=== PATIENT | male | born 1965 | race Caucasian/White ===

== ENCOUNTER → 2017-11-15 | Outpatient (CLI) | payer MEDICARE ==
[~2017-11-15] MED LIST: AC500T PO; ALPR.25T PO; ALPR1T PO; ALPR1TAB72 PO; AMLO10TA82 PO; BACL10TA PO; BSP10T PO; BUDE6HFA IH; CARV25TA PO; CLIN-62 PO; CLIN300C3 PO; CLINDAMYCIN 300 MG PO; DICL75TA2 PO; DOXY100C2 PO; DULO30CA; DULO30CA PO; DULO60CA6 PO; FLT05NA16; HCT25T PO; HYDR1TAB PO; IBP800T PO; LISI40TA PO; LORA10TA7 PO; LRT10T PO; LRZ1T PO; NAPR-243 PO; OXYC-272 PO; OXYC-281 PO; OXYC1TAB95 PO; POTA10CA43 PO; ROSU10TA12 PO; SMV20T PO; TRAZ150T42 PO; TRM50T PO; WRF1T PO; WRF2T PO; WRF3T PO; WRF5T PO; ZLP10T PO; magic mouth wash
[2017-11-15 12:27] LABS: ALANINE AMINOTRANSFERASE 12 U/L (0-55); ALBUMIN 4.3 GM/DL (3.2-4.5); ALKALINE PHOSPHATASE 61 U/L (40-136); BILIRUBIN,TOTAL 0.3 MG/DL (0.1-1.0); BUN/CREATININE RATIO 12; CALCIUM 9.1 MG/DL (8.5-10.1); CARBON DIOXIDE 25 MMOL/L (21-32); CHLORIDE 104 MMOL/L (98-107); CHOLESTEROL 161 MG/DL (< 200); CREATININE SERUM 0.89 MG/DL (0.60-1.30); GFR ESTIMATED > 60; GLUCOSE 105 MG/DL (70-105); HDL CHOLESTEROL 53 MG/DL (40-60); POTASSIUM 4.3 MMOL/L (3.6-5.0); SODIUM 136 MMOL/L (135-145); TOTAL PROTEIN 7.1 GM/DL (6.4-8.2); TRIGLYCERIDES 192 MG/DL (<150); VLDL CHOLESTEROL 38 MG/DL (5-40)
== END ==
LOC: LAB 11:42
PROVIDERS: ATTEND Physician Assistant
DX: R07.89 Other chest pain (principal); R06.09 Other forms of dyspnea; I10 Essential (primary) hypertension; I26.99 Other pulmonary embolism without acute cor pulmonale
CPT/HCPCS: 36415; 80053; 80061

== ENCOUNTER → 2017-11-26 | Outpatient (CLI) | payer MEDICAID, MEDICARE | LOC: CARD 13:07 | PROVIDERS: ATTEND Physician Assistant | DX: R07.89 Other chest pain (principal); R06.09 Other forms of dyspnea; I10 Essential (primary) hypertension; I26.99 Other pulmonary embolism without acute cor pulmonale | CPT/HCPCS: 93306 ==

== ENCOUNTER → 2017-11-28 | Outpatient (CLI) | payer MEDICAID, MEDICARE ==
[~2017-11-28] MED LIST changes: +CATHETER FLUSH 10 ML SYR IV PRN; +REGADENOSON 0.4 MG/5 ML SYR (LEXISCAN) IV ONE
[2017-11-28 09:29] VITALS: BP 122/85
[2017-11-28 09:38] VITALS: BP 180/102
[2017-11-28 09:45] VITALS: BP 143/91
--- NOTE | 2017-11-28 15:49 | STRESS TEST ---
DATE OF SERVICE: 11/28/2017 LEXISCAN MYOVIEW STRESS TEST REPORT REFERRING PHYSICIAN: Robinson Corral DO. Baseline heart rate is 79, baseline blood pressure 133/93, baseline EKG is sinus rhythm with no ischemic changes. In summary, the patient was initially scheduled for exercise Myoview stress test. Test was converted to Lexiscan Myoview stress test. Received 10.9 mCi of technetium-99 Myoview and the resting images were obtained. Then, the patient received 0.4 mg of Lexiscan followed by 32.3 mCi of technetium-99 Myoview. Throughout the test, there were minimal nondiagnostic EKG changes. The resting and stress images were reviewed and compared in the short axis, horizontal long axis, and vertical long axis views. Review of the images showed good radiotracer uptake. Typical male pattern. No significant ischemia or infarction. SSS is 1, SDS 1, TID value 0.98. On the gated images, the left ventricle appeared to be in normal size with normal contractility. Calculated ejection fraction 58%. CONCLUSION: 1. The patient tolerated Lexiscan well. 2. Diaphragmatic attenuation with typical male pattern. No significant ischemia or infarction on SPECT images. 3. Normal left ventricular size with normal contractility. Calculated ejection fraction 58%. Job ID: [id number] DocumentID: [id number] Dictated Date: 11/28/2017 15:35:29 Bolter Helper Date: 11/28/2017 15:47:51 Dictated By: CAROLYN DOOLEY MD
== END ==
LOC: CARD 07:34
PROVIDERS: ATTEND Physician Assistant
DX: R07.9 Chest pain, unspecified (principal)
CPT/HCPCS: 78452; 93017

== ENCOUNTER 2017-12-19 05:36 | Outpatient (CLI) | payer MEDICARE ==
[~2017-12-19] VITALS: Ht 177.8 cm; Wt 98.8 kg
[~2017-12-19 05:36] MED LIST changes: -CATHETER FLUSH 10 ML SYR IV PRN; -REGADENOSON 0.4 MG/5 ML SYR (LEXISCAN) IV ONE
[2017-12-19] MEDS ORDERED: TOPI100T PO (12:57)
[2017-12-19] MEDS ORDERED: NORT50CA PO (12:57)
[2017-12-19] MEDS ORDERED: LISI40TA PO (12:57)
[2017-12-19] MEDS ORDERED: CLON0.5T3 PO (12:57)
[2017-12-19] MEDS ORDERED: DULO60CA58 PO (12:57)
[2017-12-19] MEDS ORDERED: TRAM50TA2 PO (12:57)
[2017-12-19] MEDS ORDERED: CARV25TA PO (12:57)
[2017-12-19] MEDS ORDERED: AMLO10TA2 PO (12:57)
[2017-12-19] MEDS ORDERED: PANT40TA3 PO (12:57)
[2017-12-19] MEDS ORDERED: NIAC-4 PO (12:57)
[2017-12-19] MEDS ORDERED: MULT-35 PO (12:57)
[2017-12-19] MEDS ORDERED: SIMV40TA4 PO (12:57)
[2017-12-19] MEDS ORDERED: CARB200T6 PO (12:57)
[2017-12-19] MEDS ORDERED: NABU500T PO (12:57)
[2017-12-19] MEDS ORDERED: POTA10TA10 PO (12:57)
== END 2017-12-19 13:03 ==
LOC: PREOP 05:36
PROVIDERS: ATTEND Surgery
DX: Z01.818 Encounter for other preprocedural examination (principal); Z12.11 Encounter for screening for malignant neoplasm of colon; K21.9 Gastro-esophageal reflux disease without esophagitis

== ENCOUNTER 2018-01-02 10:15 | Day surgery (SDC) | payer MEDICARE, MEDICAID ==
[~2018-01-02] VITALS: Ht 177.8 cm; Wt 98.8 kg
[~2018-01-02 10:15] MED LIST changes: +AMLO10TA2 PO; +CARB200T6 PO; +CLON0.5T3 PO; +DULO60CA58 PO; +MULT-35 PO; +NABU500T PO; +NIAC-4 PO; +NORT50CA PO; +PANT40TA3 PO; +POTA10TA10 PO; +SIMV40TA4 PO; +TOPI100T PO; +TRAM50TA2 PO
--- OUTSIDE RECORDS SUMMARY | 2018-01-02 10:18 | XMS REPORT ---
Author Author ASIYA SWANSON [facility] Address [address] [place] [address] Care Team Providers Care Primer And Powder Canning Leader Name Role Phone ASIYA SWANSON Unavailable PROBLEMS Type Condition ICD9-CM Code TCA38-HF Code Onset Dates Condition Status SNOMED Code Problem Unspecified essential hypertension 401.9 Active 97670683 Problem Unspecified mood [affective] disorder F39 Active 48443919 Problem Hyposmolality and/or hyponatremia 276.1 Active 364334166 Problem Anxiety F41.9 Active 17500505 Problem High risk medication use Z79.899 Active 930959368 Problem Recurrent major depressive disorder, in partial remission F33.41 Active 36060052 Problem Social phobia F40.10 Active 15076342 Problem Opioid abuse F11.10 Active 4247775 Problem Psychophysiological insomnia F51.04 Active 437660568 Problem Hypoxemia 799.02 Active 091578324 Problem Unspecified myalgia and myositis 729.1 Active 693741942 Problem Lumbago 724.2 Active 264141931 Problem Encounter for long-term (current) use of other medications V58.69 Active 173924368 Problem Unspecified disorder of the teeth and supporting structures 525.9 Active 701222745 ALLERGIES Substance Reaction Event Type Date Status Procardia Hotflashes Drug Allergy Feb, Active Penicillins Unknown Non Drug Allergy Feb, Active ENCOUNTERS Encounter Location Date Diagnosis [facility] [address] [facility] [id number] [address] December, [facility] [address] [id number] [address] Sep, Recurrent major depressive disorder, in partial remission F33.41 ; Anxiety F41.9 and Psychophysiological insomnia F51.04 [facility] [address] [facility] [id number] [address] Sep, Recurrent major depressive disorder, in partial remission F33.41 [facility] [address] [address] Aug, Recurrent major depressive disorder, in partial remission F33.41 ; Anxiety F41.9 and Psychophysiological insomnia F51.04 [facility] [address] [address] Jul, Recurrent major depressive disorder, in partial remission F33.41 [facility] [place] [address] [facility] [address] [id number] [place] [id number] Jul, [facility] [place] [address] [facility] [address] [id number] [place] [id number] Jun, [facility] [address]00565[address] [address] Jun, Recurrent major depressive disorder, in partial remission F33.41 [facility] [id number] [place] [address]- [address] Jun, Recurrent major depressive disorder, in partial remission F33.41 [facility] [id number] [place] [address]- 2809 Jun, Recurrent major depressive disorder, in partial remission F33.41 [facility] [address] [address] May, Recurrent major depressive disorder, in partial remission F33.41 [facility] [address] [address] 14 Apr, 2017 Recurrent major depressive disorder, in partial remission F33.41 [facility] [address]00565[address] [address] Mar, Recurrent major depressive disorder, in partial remission F33.41 ; Anxiety F41.9 and Opioid abuse F11.10 [facility] [address] [address] Feb, Recurrent major depressive disorder, in partial remission F33.41 ; Anxiety F41.9 and Opioid abuse F11.10 [facility] [address] [place] [address] December, Recurrent major depressive disorder, in partial remission F33.41 ; Anxiety F41.9 and Opioid abuse F11.10 [facility] [id number] [place] [address] December, Anxiety F41.9 [facility] [id number] [place] [address]- [address] December, Recurrent major depressive disorder, in partial remission F33.41 [facility] [id number] [place] [address]- 46[address] Nov, Recurrent major depressive disorder, in partial remission F33.41 ; Anxiety F41.9 ; Psychophysiological insomnia F51.04 ; Opioid abuse F11.10 and High risk medication use Z79.899 [facility] [id number] [place] [address]- 360[address] Nov, Unspecified mood [affective] disorder F39 and Social phobia F40.10 [facility] [id number] [place] [address] 27[address] Oct, Unspecified mood [affective] disorder F39 and Social phobia F40.10 [facility] [id number] [place] [address]- 67[address] Oct, Unspecified mood [affective] disorder F39 and Social phobia F40.10 [facility] [id number] [place] [address]- 1556 Nov, [facility] [id number] [place] [address]- 35[address] Nov, [facility] [id number] [place] [address]- 0[address] Jun, [facility] [id number] [place] [address]- 1478 Jun, [facility] [place] [facility] [address] [id number] [place] [address] 95[address] May, [facility] [place] [facility] [address] [id number] [place] [address] May, [facility] [place] [facility] [address] [id number] [place] [address] 08[address] May, [facility] [place] [facility] [address] [id number] [place] [address]- 75[address] May, [facility] [place] [facility] [address] [id number] [place] [address]- 12[address] Apr, [facility] [place] [facility] [address] [id number] [place] [address]- 9604 Apr, [facility] [place] [facility] [address] [id number] [place] [address] Mar, [facility] [place] [facility] [address] [id number] [place] [address]- 57[address] Mar, [facility] [place] [facility] [address] [id number] [place] [address]- 2554 Mar, [facility] [place] [facility] [address] [id number] [place] [address] 28[address] Mar, [facility] [place] [facility] [address] [id number] [place] [address] 5759 Mar, [facility] [place] [facility] [address] [id number] [place] [address] 2330 Feb, [facility] [place] [facility] [address] [id number] [place] [address]- 1460 Feb, [facility] [place] [facility] [address] [id number] [place] [address] 50[address] Feb, [facility] [place] [facility] [address] [id number] [place] [address]- 2545 Feb, [facility] [place] [facility] [address] [id number] [place] [address]- 3947 Feb, [facility] [place] [facility] [address] [id number] [place] [address]- 0519 Feb, [facility] [place] [facility] [address] [id number] [place] [address]- 7941 Feb, [facility] [place] [facility] [address] [id number] [place] [address]- 130[address] Jan, [facility] [place] [facility] [address] [id number] [place] [address]- 0411 Jan, [facility] [place] [facility] [address] [id number] [place] [address]- 56[address] Jan, [facility] [place] [facility] [address] [id number] [place] [address]- 60[address] Jan, [facility] [place] [facility] [address] [id number] [place] [address]- 9294 Jan, [facility] [place] [facility] [address] [id number] [place] [address]- 0086 Jan, [facility] [place] [facility] [address] [id number] [place] [address]- 6324 December, [facility] [place] [facility] [address] [id number] [place] [address]- 3672 December, [facility] [place] [facility] [address] [id number] [place] [address]- 2986 December, [facility] [place] [facility] [address] [id number] [place] [address]- 3378 December, [facility] [place] [facility] [address] [id number] [place] [address]- 7983 December, [facility] [place] [facility] [address] [id number] [place] [address]- 2225 December, [facility] [place] [facility] [address] [id number] [place] [address] December, [facility] [place] [facility] [address] [id number] [address] December, [facility] [address] [address] December, [facility] [address] [address]- 79[address] Nov, [facility] [address] [address]- 4[address] Nov, [facility] [address] [address]- [address] Nov, [facility] [address] [address]- [address] Nov, [facility] [address] [address]- 26[address] Nov, [facility] [address] [address]- 17[address] Nov, IMMUNIZATIONS No Known Immunizations SOCIAL HISTORY Never Assessed REASON FOR VISIT f/MANA Jarrtet PLAN OF CARE Activity Details Follow Up 4 Weeks Reason: VITAL SIGNS Height 72 in 2017-03-07 Weight 256 lbs 2017-03-07 Heart Rate 76 bpm 2017-03-07 Respiratory Rate 20 2017-03-07 BMI 34.72 kg/m2 2017-03-07 Blood pressure systolic 100 mmHg 2017-03-07 Blood pressure diastolic 70 mmHg 2017-03-07 MEDICATIONS Medication Instructions Dosage Frequency Start Date End Date Duration Status Pantoprazole Sodium 40 MG Orally Once a day 1 tablet 24h Active Lisinopril 40 mg Orally Once a day 1 tablet 24h Nov, Active Carvedilol 25 mg Orally 2 times a day take 1 tablet (25 mg) by oral route 2 times per day with food 12h Nov, Active Tizanidine HCl 2 MG Orally Once a day 4 tabs 24h Active Topiramate 100 mg Orally twice a day 1 tablet 12h 30 days Active Tramadol HCl 50 mg Orally every 4 hrs 1 tablet as needed 4h Active Amlodipine Besylate 10 MG Orally Once a day 1 tablet 24h Active Hydrochlorothiazide 25 mg take 1 tablet (25 mg) by oral route once daily Nov, Active Cymbalta 60 mg take 1 capsule by Oral route 1 time per dayIn the morning Active Carbamazepine 200 mg Orally Twice a day 1 tablet 12h 30 days Active Niacin Active Nortriptyline HCl 50 mg Orally Once a day 1 capsule 24h 30 days Active Simvastatin 40 MG Orally Once a day 1 tablet 24h 10 Nov, 2011 Active Potassium Chloride 10 mEq 1 Tablet by Oral route 1 time per day Mar Active Clonazepam 0.5 MG Orally 3 times a day 1 tablet 8h 30 days Active RESULTS No Results PROCEDURES Procedure Date Ordered Result Body Site [facility] VISIT ESTABLISHED PATIENT March 07, 2017 INSTRUCTIONS MEDICATIONS ADMINISTERED No Known Medications MEDICAL (GENERAL) HISTORY Type Description Date Medical History Anxiety Medical History Major Depressive Disorder Medical History Moderate Opioid Use Disorder Medical History Obesity
--- OUTSIDE RECORDS SUMMARY | 2018-01-02 10:18 | XMS REPORT ---
Author Author ASIYA SWANSON [facility] Address [address] [place] [address] Care Team Providers Care Suspender Cutter Name Role Phone MISBAH SAWNSONSURJIT Unavailable PROBLEMS Type Condition ICD9-CM Code CVB08-IP Code Onset Dates Condition Status SNOMED Code Problem Unspecified essential hypertension 401.9 Active 53597660 Problem Unspecified mood [affective] disorder F39 Active 74530770 Problem Hyposmolality and/or hyponatremia 276.1 Active 710493552 Problem Anxiety F41.9 Active 06799268 Problem High risk medication use Z79.899 Active 372379501 Problem Recurrent major depressive disorder, in partial remission F33.41 Active 35662813 Problem Social phobia F40.10 Active 74006847 Problem Opioid abuse F11.10 Active 3913104 Problem Psychophysiological insomnia F51.04 Active 552808664 Problem Hypoxemia 799.02 Active 199996859 Problem Unspecified myalgia and myositis 729.1 Active 505260090 Problem Lumbago 724.2 Active 787407215 Problem Encounter for long-term (current) use of other medications V58.69 Active 486431836 Problem Unspecified disorder of the teeth and supporting structures 525.9 Active 598047616 ALLERGIES No Information ENCOUNTERS Encounter Location Date Diagnosis [id number] [address] December, [place] [id number] [address] Sep, Recurrent major depressive disorder, in partial remission F33.41 ; Anxiety F41.9 and Psychophysiological insomnia F51.04 [facility] [address] [facility] [id number] [address] Sep, Recurrent major depressive disorder, in partial remission F33.41 [place] [address] [address]- [address] Aug, Recurrent major depressive disorder, in partial remission F33.41 ; Anxiety F41.9 and Psychophysiological insomnia F51.04 [facility] [address] [address]- [address] Jul, Recurrent major depressive disorder, in partial remission F33.41 [facility] [place] [address] [facility] [address] [id number] [place] [id number] Jul, [facility] [place] [address] [facility] [address] [id number] [place] [id number] Jun, [id number] [place] [address]- [address] Jun, Recurrent major depressive disorder, in partial remission F33.41 [place] [address] [address]- 1875 Jun, Recurrent major depressive disorder, in partial remission F33.41 [place] [address] [address]- 8980 Jun, Recurrent major depressive disorder, in partial remission F33.41 [address] [id number] [place] [address]2550- 6561 May, Recurrent major depressive disorder, in partial remission F33.41 [place] [address] [address]- 3[address] 14 Apr, 2017 Recurrent major depressive disorder, in partial remission F33.41 [place] [address] [address]- 2571 Mar, Recurrent major depressive disorder, in partial remission F33.41 ; Anxiety F41.9 and Opioid abuse F11.10 [facility] [address] [place] [address]35- 5678 Feb, Recurrent major depressive disorder, in partial remission F33.41 ; Anxiety F41.9 and Opioid abuse F11.10 [address] [id number] [place] [address] 48601- 0683 December, Recurrent major depressive disorder, in partial remission F33.41 ; Anxiety F41.9 and Opioid abuse F11.10 [facility] [id number] [place] [address] 24427- 9122 December, Anxiety F41.9 [facility] [id number] [place] [address] 49204- 1161 December, Recurrent major depressive disorder, in partial remission F33.41 [facility] [id number] [place] [address]31- 3664 Nov, Recurrent major depressive disorder, in partial remission F33.41 ; Anxiety F41.9 ; Psychophysiological insomnia F51.04 ; Opioid abuse F11.10 and High risk medication use Z79.899 [facility] [id number] [place] [address] 69172- 5122 Nov, Unspecified mood [affective] disorder F39 and Social phobia F40.10 [facility] [id number] [place] [address] 75268- 6945 Oct, Unspecified mood [affective] disorder F39 and Social phobia F40.10 [facility] [id number] [place] [address]01- 1397 Oct, Unspecified mood [affective] disorder F39 and Social phobia F40.10 [facility] [id number] [place] [address] 48837- 3843 Nov, [facility] [id number] [place] [address] 88348- 0048 Nov, [facility] [id number] [place] [address] 35897- 0663 Jun, [facility] [id number] [place] [address] 12327- 3206 Jun, [facility] [id number] [place] [address] 10790- 3460 May, [facility] [place] [facility] [address] [id number] [place] [address]- 8626 May, [facility] [place] [facility] [address] [id number] [place] [address]- 0548 May, [facility] [place] [facility] [address] [id number] [place] [address] May, [facility] [place] [facility] [address] [id number] [place] [address]- 8941 Apr, [facility] [place] [facility] [address] [id number] [place] [address]- 7986 Apr, [facility] [place] [facility] [address] [id number] [place] [address]- 7973 Mar, [facility] [place] [facility] [address] [id number] [place] [address]- 0618 Mar, [facility] [place] [facility] [address] [id number] [place] [address]- 1785 Mar, [facility] [place] [facility] [address] [id number] [place] [address]- 0715 Mar, [facility] [place] [facility] [address] [id number] [place] [address]- 7398 Mar, [facility] [place] [facility] [address] [id number] [place] [address]- 9394 Feb, [facility] [place] [facility] [address] [id number] [place] [address]- 4675 Feb, [facility] [place] [facility] [address] [id number] [place] [address]- 5225 Feb, [facility] [place] [facility] [address] [id number] [place] [address]- 8659 Feb, [facility] [place] [facility] [address] [id number] [place] [address]- 9834 Feb, [facility] [place] [facility] [address] [id number] [place] [address]- 5717 Feb, [facility] [address] [id number] [place] [address]- 7761 Feb, [facility] [place] [facility] [address] [id number] [place] [address]- 1659 Jan, [facility] [place] [facility] [address] [id number] [place] [address]- 4726 Jan, [facility] [place] [facility] [address] [id number] [place] [address]- 3349 Jan, [facility] [place] [facility] [address] [id number] [place] [address]- 1659 Jan, [facility] [place] [facility] [address] [id number] [place] [address]- 1662 Jan, [facility] [address] [id number] [place] [address]- 3413 Jan, [facility] [place] [facility] [address] [id number] [place] [address]- 7339 December, [facility] [place] [facility] [address] [id number] [place] [address]- 6659 December, [facility] [place] [facility] [address] [id number] [place] [address]- 2147 December, [facility] [place] [facility] [address] [id number] [place] [address]- 2560 December, [facility] [place] [facility] [address] [id number] [place] [address]- 8688 December, [facility] [place] [facility] [address] [id number] [place] [address]- 0976 December, [facility] [place] [facility] [address] [id number] [place] [address]- 8947 December, [facility] [place] [facility] [address] [id number] [place] [address]- 6628 December, [facility] [id number] [address]- 3430 December, [facility] [address] [address]- 9710 Nov, [facility] [address] [address]- 1198 Nov, [facility] [address] [address]- 6920 Nov, [facility] [address] [address]- 2328 Nov, [facility] [address] [address]- 7808 Nov, [facility] [address] [address]- 3370 Nov, IMMUNIZATIONS No Known Immunizations SOCIAL HISTORY Never Assessed REASON FOR VISIT gonzález refill PLAN OF CARE VITAL SIGNS MEDICATIONS Medication Instructions Dosage Frequency Start Date End Date Duration Status Clonazepam 0.5 MG Orally Twice a day 1 tablet 12h 30 days Active RESULTS No Results PROCEDURES No Known procedures INSTRUCTIONS MEDICATIONS ADMINISTERED No Known Medications MEDICAL (GENERAL) HISTORY Type Description Date Medical History Anxiety Medical History Major Depressive Disorder Medical History Moderate Opioid Use Disorder Medical History Obesity
--- OUTSIDE RECORDS SUMMARY | 2018-01-02 10:18 | XMS REPORT ---
Author Author CLARISSA HAM Organization [facility] Address [address] [place] [address] Care Team Providers Care Cloth Examiner Machine Name Role Phone CLARISSA HAM Unavailable PROBLEMS Type Condition ICD9-CM Code MYL79-ZE Code Onset Dates Condition Status SNOMED Code Problem Unspecified essential hypertension 401.9 Active 64047200 Problem Unspecified mood [affective] disorder F39 Active 90842963 Problem Hyposmolality and/or hyponatremia 276.1 Active 222897582 Problem Anxiety F41.9 Active 30765969 Problem High risk medication use Z79.899 Active 097864770 Problem Recurrent major depressive disorder, in partial remission F33.41 Active 57789280 Problem Social phobia F40.10 Active 65485771 Problem Opioid abuse F11.10 Active 4077416 Problem Psychophysiological insomnia F51.04 Active 513649811 Problem Hypoxemia 799.02 Active 664119544 Problem Unspecified myalgia and myositis 729.1 Active 093072673 Problem Lumbago 724.2 Active 784562778 Problem Encounter for long-term (current) use of other medications V58.69 Active 467902131 Problem Unspecified disorder of the teeth and supporting structures 525.9 Active [id number] ALLERGIES No Information SOCIAL HISTORY Never Assessed PLAN OF CARE Activity Details Follow Up 2 Weeks Reason:anxiety, depression VITAL SIGNS MEDICATIONS Unknown Medications RESULTS No Results PROCEDURES Procedure Date Ordered Result Body Site [facility] VISIT MENTAL HEALTH ESTAB PT November 09, 2016 Psychotherapy, patient &/family, 30 minutes, established patient November 09, 2016 IMMUNIZATIONS No Known Immunizations MEDICAL (GENERAL) HISTORY Type Description Date Medical History Anxiety Medical History Major Depressive Disorder Medical History Moderate Opioid Use Disorder Medical History Obesity
--- OUTSIDE RECORDS SUMMARY | 2018-01-02 10:19 | XMS REPORT ---
Author Author ASIYA SWANSON [facility] Address [address] [place] [address] Care Team Providers Care Power Mule Operator Name Role Phone KIKI ASIYA Unavailable PROBLEMS Type Condition ICD9-CM Code [id number] Code Onset Dates Condition Status SNOMED Code Problem Unspecified essential hypertension 401.9 Active 68451522 Problem Unspecified mood [affective] disorder F39 Active 43695330 Problem Hyposmolality and/or hyponatremia 276.1 Active 686833049 Problem Anxiety F41.9 Active 59067400 Problem High risk medication use Z79.899 Active 418946469 Problem Recurrent major depressive disorder, in partial remission F33.41 Active 62400081 Problem Social phobia F40.10 Active 88839317 Problem Opioid abuse F11.10 Active 6581412 Problem Psychophysiological insomnia F51.04 Active 663753589 Problem Hypoxemia 799.02 Active 354517658 Problem Unspecified myalgia and myositis 729.1 Active 035226779 Problem Lumbago 724.2 Active 604621670 Problem Encounter for long-term (current) use of other medications V58.69 Active 874482107 Problem Unspecified disorder of the teeth and supporting structures 525.9 Active [id number] ALLERGIES No Information SOCIAL HISTORY Never Assessed PLAN OF CARE VITAL SIGNS MEDICATIONS Medication Instructions Dosage Frequency Start Date End Date Duration Status Clonazepam 1 MG Orally Twice a day 1 tablet 12h 30 days Active RESULTS No Results PROCEDURES No Known procedures IMMUNIZATIONS No Known Immunizations MEDICAL (GENERAL) HISTORY Type Description Date Medical History Anxiety Medical History Major Depressive Disorder Medical History Moderate Opioid Use Disorder Medical History Obesity
--- OUTSIDE RECORDS SUMMARY | 2018-01-02 10:19 | XMS REPORT ---
Author Author CLARISSA HAM Organization [facility] Address [address] [place] [address] Care Team Providers Care Lcac Operator Name Role Phone FATOUMATA CLARISSA Unavailable PROBLEMS Type Condition ICD9-CM Code [id number] Code Onset Dates Condition Status SNOMED Code Problem Unspecified essential hypertension 401.9 Active 03547838 Problem Unspecified mood [affective] disorder F39 Active 56731877 Problem Hyposmolality and/or hyponatremia 276.1 Active 659580231 Problem Anxiety F41.9 Active 33312303 Problem High risk medication use Z79.899 Active 122198536 Problem Recurrent major depressive disorder, in partial remission F33.41 Active 44148285 Problem Social phobia F40.10 Active 09900512 Problem Opioid abuse F11.10 Active 4341576 Problem Psychophysiological insomnia F51.04 Active 997852436 Problem Hypoxemia 799.02 Active 310249733 Problem Unspecified myalgia and myositis 729.1 Active 656811089 Problem Lumbago 724.2 Active 701321085 Problem Encounter for long-term (current) use of other medications V58.69 Active 982333007 Problem Unspecified disorder of the teeth and supporting structures 525.9 Active 885484726 ALLERGIES No Information SOCIAL HISTORY Never Assessed PLAN OF CARE Activity Details Follow Up Next available Reason:depression & anxiety VITAL SIGNS MEDICATIONS Medication Instructions Dosage Frequency Start Date End Date Duration Status Clonazepam Active Carvedilol 25 mg take 1 tablet (25 mg) by oral route 2 times per day with food Nov, Active Nortriptyline HCl Active Mirtazapine Active amlodipine 10 mg take 1 tablet (10 mg) by oral route once daily Nov Active Doxepin HCl Active Cymbalta 60 mg take 1 capsule by Oral route 1 time per dayIn the morning Feb, Active Klor-Con Active Lisinopril 40 mg take 0.5 tablet by Oral route 2 times per day Nov, Active Hydrochlorothiazide 25 mg take 1 tablet (25 mg) by oral route once daily Nov, Active Simvastatin 20 mg take 1 tablet (20 mg) by oral route once daily in the evening Nov, Active Topiramate Active Nabumetone Active Carbamazepine Active Tizanidine HCl Active Potassium Chloride 10 mEq 1 Tablet by Oral route 1 time per day Mar Active Niacin Active Pantoprazole Sodium Active RESULTS No Results PROCEDURES Procedure Date Ordered Result Body Site [facility] VISIT MENTAL HEALTH ESTAB PT October 27, 2016 Psychotherapy, patient &/family, 30 minutes, established patient October 27, 2016 IMMUNIZATIONS No Known Immunizations MEDICAL (GENERAL) HISTORY Type Description Date Medical History Anxiety Medical History Major Depressive Disorder Medical History Moderate Opioid Use Disorder Medical History Obesity
--- OUTSIDE RECORDS SUMMARY | 2018-01-02 10:19 | XMS REPORT ---
Author Author [facility] Address [address] [place] [address] Care Team Providers Care Risk Specialist Name Role Phone MISBAH SWANSONSURJIT Unavailable PROBLEMS Type Condition ICD9-CM Code SRL17-ZG Code Onset Dates Condition Status SNOMED Code Problem Unspecified essential hypertension 401.9 Active 49012891 Problem Unspecified mood [affective] disorder F39 Active 66585519 Problem Hyposmolality and/or hyponatremia 276.1 Active 474692521 Problem Anxiety F41.9 Active 28906633 Problem High risk medication use Z79.899 Active 602435946 Problem Recurrent major depressive disorder, in partial remission F33.41 Active 25299411 Problem Social phobia F40.10 Active 24922895 Problem Opioid abuse F11.10 Active 0342735 Problem Psychophysiological insomnia F51.04 Active 271538070 Problem Hypoxemia 799.02 Active 002181896 Problem Unspecified myalgia and myositis 729.1 Active 454702024 Problem Lumbago 724.2 Active 873815924 Problem Encounter for long-term (current) use of other medications V58.69 Active 470265552 Problem Unspecified disorder of the teeth and supporting structures 525.9 Active 891840214 ALLERGIES Substance Reaction Event Type Date Status Procardia Hotflashes Drug Allergy December, Active Penicillins Unknown Non Drug Allergy December, Active SOCIAL HISTORY Never Assessed PLAN OF CARE Activity Details Follow Up 2 Months Reason: Pending Test [employer] VITAL SIGNS Height 72 in 2017-01-05 Weight 267.4 lbs 2017-01-05 Heart Rate 84 bpm 2017-01-05 Respiratory Rate 20 2017-01-05 BMI 36.26 kg/m2 2017-01-05 Blood pressure systolic 112 mmHg 2017-01-05 Blood pressure diastolic 80 mmHg 2017-01-05 MEDICATIONS Medication Instructions Dosage Frequency Start Date End Date Duration Status Tizanidine HCl 2 MG Orally Once a day 4 tabs 24h Active Amlodipine Besylate 10 MG Orally Once a day 1 tablet 24h Active Lisinopril 40 mg Orally Once a day 1 tablet 24h 10 Nov, 2011 Active Simvastatin 40 MG Orally Once a day 1 tablet 24h Nov, Active Hydrochlorothiazide 25 mg take 1 tablet (25 mg) by oral route once daily Nov, Active Carbamazepine 200 mg Orally Once a day 1 tablet 24h 30 days Active Cymbalta 60 mg take 1 capsule by Oral route 1 time per dayIn the morning Feb, Active Potassium Chloride 10 mEq 1 Tablet by Oral route 1 time per day Mar Active Topiramate 100 mg Orally twice a day 1 tablet 12h 30 days Active Tramadol HCl 50 mg Orally every 4 hrs 1 tablet as needed 4h Active Clonazepam 1 MG Orally Twice a day 1 tablet 12h Feb, 30 days Active Carvedilol 25 mg Orally 2 times a day take 1 tablet (25 mg) by oral route 2 times per day with food 12h Nov, Active Nortriptyline HCl 50 mg Orally Once a day 1 capsule 24h 30 days Active Pantoprazole Sodium 40 MG Orally Once a day 1 tablet 24h Active RESULTS No Results PROCEDURES Procedure Date Ordered Result Body Site No Charge January 05, 2017 [facility] VISIT ESTABLISHED PATIENT January 05, 2017 IMMUNIZATIONS No Known Immunizations MEDICAL (GENERAL) HISTORY Type Description Date Medical History Anxiety Medical History Major Depressive Disorder Medical History Moderate Opioid Use Disorder Medical History Obesity
--- OUTSIDE RECORDS SUMMARY | 2018-01-02 10:19 | XMS REPORT ---
Author Author ASIYA SWANSON [facility] Address [address] [place] [address] Care Team Providers Care Ophthalmic Medical Assistant Name Role Phone ASIYA SWANSON Unavailable PROBLEMS Type Condition ICD9-CM Code [id number] Code Onset Dates Condition Status SNOMED Code Problem Unspecified essential hypertension 401.9 Active 85011409 Problem Unspecified mood [affective] disorder F39 Active 17467972 Problem Hyposmolality and/or hyponatremia 276.1 Active 735875686 Problem Anxiety F41.9 Active 51240719 Problem High risk medication use Z79.899 Active 555351214 Problem Recurrent major depressive disorder, in partial remission F33.41 Active 38936655 Problem Social phobia F40.10 Active 99232825 Problem Opioid abuse F11.10 Active 0201196 Problem Psychophysiological insomnia F51.04 Active 237268404 Problem Hypoxemia 799.02 Active 912650941 Problem Unspecified myalgia and myositis 729.1 Active 195447055 Problem Lumbago 724.2 Active 389998857 Problem Encounter for long-term (current) use of other medications V58.69 Active 598428990 Problem Unspecified disorder of the teeth and supporting structures 525.9 Active 387650749 ALLERGIES Substance Reaction Event Type Date Status Procardia Hotflashes Drug Allergy Mar, Active Penicillins Unknown Non Drug Allergy Mar, Active ENCOUNTERS Encounter Location Date Diagnosis [facility] [address] [facility] [id number] [address] December, [facility] [id number] [address] Sep, Recurrent major depressive disorder, in partial remission F33.41 ; Anxiety F41.9 and Psychophysiological insomnia F51.04 [facility] [address] [facility] [id number], [place] [address] Sep, Recurrent major depressive disorder, in partial remission F33.41 [facility] [address] [address] Aug, Recurrent major depressive disorder, in partial remission F33.41 ; Anxiety F41.9 and Psychophysiological insomnia F51.04 [facility] [address], [place] [address] Jul, Recurrent major depressive disorder, in partial remission F33.41 [facility] [place] [address] [facility] [id number] [place] [id number] Jul, [facility] [place] [address] [facility] [address] [id number] [place] [id number] Jun, [facility] [address], [place] [address] Jun, Recurrent major depressive disorder, in partial remission F33.41 [facility] [id number] [place] [address] Jun, Recurrent major depressive disorder, in partial remission F33.41 [facility] [id number] [place] [address] Jun, Recurrent major depressive disorder, in partial remission F33.41 [facility] [address], [place] [address] May, Recurrent major depressive disorder, in partial remission F33.41 [facility] [address], [place] [address] 14 Apr, 2017 Recurrent major depressive disorder, in partial remission F33.41 [facility] [address], [place] [address] Mar, Recurrent major depressive disorder, in partial remission F33.41 ; Anxiety F41.9 and Opioid abuse F11.10 [facility] [address], [place] [address] Feb, Recurrent major depressive disorder, in partial remission F33.41 ; Anxiety F41.9 and Opioid abuse F11.10 [facility] [id number] [place] [address] December, Recurrent major depressive disorder, in partial remission F33.41 ; Anxiety F41.9 and Opioid abuse F11.10 [facility] [id number] [place] [address] December, Anxiety F41.9 [facility] [id number] [place] [address] December, Recurrent major depressive disorder, in partial remission F33.41 [facility] [id number] [place] [address] Nov, Recurrent major depressive disorder, in partial remission F33.41 ; Anxiety F41.9 ; Psychophysiological insomnia F51.04 ; Opioid abuse F11.10 and High risk medication use Z79.899 [facility] [id number] [place] [address] Nov, Unspecified mood [affective] disorder F39 and Social phobia F40.10 [facility] [id number] [place] [address] Oct, Unspecified mood [affective] disorder F39 and Social phobia F40.10 [facility] [id number] [place] [address] Oct, Unspecified mood [affective] disorder F39 and Social phobia F40.10 [facility] [id number] [place] [address] Nov, [facility] [id number] [place] [address] Nov, [facility] [id number] [place] [address] Jun, [facility] [id number] [place] [address] Jun, [facility] [place] [facility] [address] [id number] [place] [address] May, [facility] [place] [facility] [address] [id number] [place] [address] May, [facility] [place] [facility] [address] [id number] [place] [address] May, [facility] [place] [facility] [address] [id number] [place] [address] May, [facility] [place] [facility] [address] [id number] [place] [address] Apr, [facility] [place] [facility] [address] [id number] [place] [address] Apr, [facility] [place] [facility] [address] [id number] [place] [address] Mar, [facility] [place] [facility] [address] [id number] [place] [address] Mar, [facility] [place] [facility] [address] [id number] [place] [address] Mar, [facility] [place] [facility] [address] [id number] [place] [address] Mar, [facility] [place] [facility] [address] [id number] [place] [address] Mar, [facility] [place] [facility] [address] [id number] [place] [address] Feb, [facility] [place] [facility] [address] [id number] [place] [address] Feb, [facility] [place] [facility] [address] [id number] [place] [address] Feb, [facility] [place] [facility] [address] [id number] [place] [address] Feb, [facility] [place] [facility] [address] [id number] [place] [address] Feb, [facility] [place] [facility] [address] [id number] [place] [address] Feb, [facility] [place] [facility] [address] [id number] [place] [address] Feb, [facility] [place] [facility] [address] [id number] [place] [address] Jan, [facility] [place] [facility] [address] [id number] [place] [address] Jan, [facility] [place] [facility] [address] [id number] [place] [address] Jan, [facility] [place] [facility] [address] [id number] [place] [address] Jan, [facility] [place] [facility] [address] [id number] [place] [address] Jan, [facility] [place] [facility] [address] [id number] [place] [address] Jan, [facility] [place] [facility] [address] [id number] [place] [address] December, [facility] [place] [facility] [address] [id number] [place] [address] December, [facility] [place] [facility] [address] [id number] [place] [address] December, [facility] [place] [facility] [address] [id number] [place] [address] December, [facility] [place] [facility] [address] [id number] [place] [address] December, [facility] [place] [facility] [address] [id number] [place] [address] December, [facility] [place] [facility] [address] [id number] [place] [address] December, [facility] [place] [facility] [address] [id number] [address] December, [facility] [id number], [place] [address] December, [facility] [address], [place] [address] Nov, [facility] [address], [place] [address] Nov, [facility] [address], [place] [address] Nov, [facility] [address], [place] [address] Nov, [facility] [address], [place] [address] Nov, [facility] [address], [place] [address] Nov, IMMUNIZATIONS No Known Immunizations SOCIAL HISTORY Never Assessed REASON FOR VISIT negin/karo Gimenez MA PLAN OF CARE Activity Details Follow Up 4 Weeks Reason: VITAL SIGNS Height 72 in 2017-04-04 Weight 256.0 lbs 2017-04-04 Heart Rate 80 bpm 2017-04-04 Respiratory Rate 20 2017-04-04 BMI 34.72 kg/m2 2017-04-04 Blood pressure systolic 122 mmHg 2017-04-04 Blood pressure diastolic 82 mmHg 2017-04-04 MEDICATIONS Medication Instructions Dosage Frequency Start Date End Date Duration Status Nortriptyline HCl 50 mg Orally Once a day 1 capsule 24h 30 days Active Simvastatin 40 MG Orally Once a day 1 tablet 24h 10 Nov, 2011 Active Tizanidine HCl 2 MG Orally Once a day 4 tabs 24h Active Clonazepam 0.5 MG Orally Twice a day 1 tablet 12h 30 days Active Cymbalta 60 mg take 1 capsule by Oral route 1 time per dayIn the morning Active Carvedilol 25 mg Orally 2 times a day take 1 tablet (25 mg) by oral route 2 times per day with food 12h Nov, Active Niacin Active Carbamazepine 200 mg Orally Twice a day 1 tablet 12h 30 days Active Potassium Chloride 10 mEq 1 Tablet by Oral route 1 time per day Mar Active Hydrochlorothiazide 25 mg take 1 tablet (25 mg) by oral route once daily Nov, Active Amlodipine Besylate 10 MG Orally Once a day 1 tablet 24h Active Pantoprazole Sodium 40 MG Orally Once a day 1 tablet 24h Active Topiramate 100 mg Orally twice a day 1 tablet 12h 30 days Active Lisinopril 40 mg Orally Once a day 1 tablet 24h Nov, Active Tramadol HCl 50 mg Orally every 4 hrs 1 tablet as needed 4h Active RESULTS No Results PROCEDURES Procedure Date Ordered Result Body Site [facility] VISIT ESTABLISHED PATIENT Apr 04, 2017 INSTRUCTIONS MEDICATIONS ADMINISTERED No Known Medications MEDICAL (GENERAL) HISTORY Type Description Date Medical History Anxiety Medical History Major Depressive Disorder Medical History Moderate Opioid Use Disorder Medical History Obesity
--- OUTSIDE RECORDS SUMMARY | 2018-01-02 10:19 | XMS REPORT | Continuity of Care Document ---
Author Author [facility] Address Unknown Phone Unavailable Allergies Active Description Code Type Severity Reaction Onset Reported/Identified Relationship to Patient Clinical Status Yes Penicillins Drug Allergy N/A N/A 11/28/2011 Yes Procardia Drug Allergy N/A N/A 11/28/2011 Yes nifedipine [id number] Drug Allergy Moderate RASH 12/19/2017 Yes Penicillins [id number] Drug Allergy Mild N/A 12/19/2017 Medications There is no data. Problems Date Dx Coded Attending Type Code Diagnosis Diagnosed By 11/28/2011 TOBIAS SCHNEIDER RN 276.1 HYPONATREMIA 11/28/2011 TOBIAS SCHNEIDER RN 724.2 lower back pain 11/28/2011 TOBIAS SCHNEIDER RN 729.1 FIBROMYALGIA 11/28/2011 TOBIAS SCHNEIDER RN V58.69 taking high-risk medication 01/09/2012 TOBIAS SCHNEIDER RN 799.02 HYPOXEMIA 01/25/2012 Ot 272.4 HYPERLIPIDEMIA NEC/NOS 01/25/2012 Ot 300.00 ANXIETY STATE NOS 01/25/2012 Ot 311 DEPRESSIVE DISORDER NEC 01/25/2012 Ot 401.9 HYPERTENSION NOS 01/25/2012 Ot 412 OLD MYOCARDIAL INFARCT 01/25/2012 Ot 414.01 CORONARY ATHEROSCLEROSIS OF [place] CORON 01/25/2012 Ot 531.50 CHR STOMACH ULCER W PERF 01/25/2012 Ot 535.00 ACUTE GASTRITIS, W/O MENTION OF HEMORRHA 01/25/2012 Ot V12.55 PERSONAL HISTORY OF PULMONARY EMBOLISM 03/20/2012 TOBIAS SCHNEIDER RN 300.00 ANXIETY STATE UNSPECIFIED 05/16/2012 TOBIAS SCHNEIDER RN 401.9 UNSPECIFIED ESSENTIAL HYPERTENSION 05/16/2012 TOBIAS SCHNEIDER RN 525.9 UNSPECIFIED DISORDER OF THE TEETH AND SUPPORTING STRUCTURES 06/12/2012 Ot 521.00 UNSPEC DENTAL CARIES 06/12/2012 Ot 523.10 CHRONIC GINGIVITIS, [place] INDUCED 06/12/2012 Ot 523.40 CHRONIC PERIODONTITIS, UNSPECIFIED 06/12/2012 Ot 525.9 DENTAL DISORDER NOS 06/20/2012 Ot 300.00 ANXIETY STATE NOS 06/20/2012 Ot 401.9 HYPERTENSION NOS 06/20/2012 Ot 414.01 CORONARY ATHEROSCLEROSIS OF [place] CORON 06/20/2012 Ot 786.50 CHEST PAIN NOS 06/20/2012 Ot V12.51 HX-VENOUS THROMBOSIS EMBOLISM 06/20/2012 Ot V17.49 FAMILY HISTORY OF OTHER CARDIOVASCULAR D 06/20/2012 Ot V58.61 ANTICOAGULANTS,LT,CURRENT USE 06/20/2012 Ot V58.69 OTH MED,LT, CURRENT USE 09/07/2012 Ot 338.18 OTHER ACUTE POSTOPERATIVE PAIN 09/07/2012 Ot 521.00 UNSPEC DENTAL CARIES 09/07/2012 Ot 522.5 PERIAPICAL ABSCESS 09/07/2012 Ot 525.9 DENTAL DISORDER NOS 09/07/2012 Ot V58.61 ANTICOAGULANTS,LT,CURRENT USE 09/07/2012 Ot V58.69 OTH MED,LT, CURRENT USE 09/26/2012 Ot 276.8 HYPOPOTASSEMIA 09/26/2012 Ot 277.7 DYSMETABOLIC SYNDROME X 09/26/2012 Ot 285.9 ANEMIA NOS 09/26/2012 Ot 300.00 ANXIETY STATE NOS 09/26/2012 Ot 305.41 SEDATIVE, HYPNOTIC OR ANXIOLYTIC ABUSE, 09/26/2012 Ot 305.51 OPIOID ABUSE -CONTINUOUS 09/26/2012 Ot 401.9 HYPERTENSION NOS 09/26/2012 Ot 729.1 MYALGIA AND MYOSITIS NOS 09/26/2012 Ot 780.52 INSOMNIA, UNSPECIFIED 09/26/2012 Ot 780.57 UNSPECIFIED SLEEP APNEA 09/26/2012 Ot V62.84 SUICIDAL IDEATION 11/16/2017 [place] Ot I10 ESSENTIAL (PRIMARY) HYPERTENSION 11/16/2017 [place] Ot I26.99 OTHER PULMONARY EMBOLISM WITHOUT ACUTE C 11/16/2017 [place] Ot R06.09 OTHER FORMS OF DYSPNEA 11/16/2017 [place] Ot R07.89 OTHER CHEST PAIN 11/28/2017 [place] Ot I10 ESSENTIAL (PRIMARY) HYPERTENSION 11/28/2017 [place] Ot I26.99 OTHER PULMONARY EMBOLISM WITHOUT ACUTE C 11/28/2017 BARBER-FATOUMATA PA, HOMA K Ot R06.09 OTHER FORMS OF DYSPNEA 11/28/2017 BARBER-FATOUMATA PA, HOMA K Ot R07.89 OTHER CHEST PAIN 11/28/2017 BARBER-FATOUMATA PA, HOMA K Ot I10 ESSENTIAL (PRIMARY) HYPERTENSION 11/28/2017 BARBER-FATOUMATA PA, HOMA K Ot I26.99 OTHER PULMONARY EMBOLISM WITHOUT ACUTE C 11/28/2017 BARBER-FATOUMATA PA, HOMA K Ot R06.09 OTHER FORMS OF DYSPNEA 11/28/2017 BARBER-FATOUMATA PA, HOMA K Ot R07.89 OTHER CHEST PAIN 11/29/2017 BARBER-FATOUMATA PA, HOMA K Ot R07.9 CHEST PAIN, UNSPECIFIED 12/10/2017 BARBER-FATOUMATA PA, HOMA K Ot I10 ESSENTIAL (PRIMARY) HYPERTENSION 12/10/2017 BARBER-FATOUMATA PA, HOMA K Ot I26.99 OTHER PULMONARY EMBOLISM WITHOUT ACUTE C 12/10/2017 BARBER-FATOUMATA PA, HOMA K Ot R06.09 OTHER FORMS OF DYSPNEA 12/10/2017 BARBER-FATOUMATA PA, HOMA K Ot R07.89 OTHER CHEST PAIN 12/12/2017 PaRobinson lacy W 401.9 UNSPECIFIED ESSENTIAL HYPERTENSION 12/12/2017 PaRobinson lacy W I10 ESSENTIAL (PRIMARY) HYPERTENSION 12/12/2017 Pabambi, Robinson W 272.4 OTHER AND UNSPECIFIED HYPERLIPIDEMIA 12/12/2017 [place] Robinson W 401.9 UNSPECIFIED ESSENTIAL HYPERTENSION 12/12/2017 PaRobinson lacy W E78.5 HYPERLIPIDEMIA, UNSPECIFIED 12/12/2017 Pabambi, Robinson W I10 ESSENTIAL (PRIMARY) HYPERTENSION 12/12/2017 [place] Robinson W 272.4 OTHER AND UNSPECIFIED HYPERLIPIDEMIA 12/12/2017 Pabambi, Robinson W 401.9 UNSPECIFIED ESSENTIAL HYPERTENSION 12/12/2017 PaRobinson lacy W 724.2 LUMBAGO 12/12/2017 PaRobinson lacy W E78.5 HYPERLIPIDEMIA, UNSPECIFIED 12/12/2017 Pabambi, Robinson W I10 ESSENTIAL (PRIMARY) HYPERTENSION 12/18/2017 BARBER-FATOUMTAA PA, HOMA K Ot I10 ESSENTIAL (PRIMARY) HYPERTENSION 12/18/2017 BARBER-FATOUMATA PA, HOMA K Ot I26.99 OTHER PULMONARY EMBOLISM WITHOUT ACUTE C 12/18/2017 [place] Ot R06.09 OTHER FORMS OF DYSPNEA 12/18/2017 [place] Ot R07.89 OTHER CHEST PAIN 12/18/2017 [place] Ot R07.9 CHEST PAIN, UNSPECIFIED 12/20/2017 SAMUEL MCLEAN MD, Ot K21.9 GASTRO-ESOPHAGEAL REFLUX DISEASE WITHOUT 12/20/2017 SAMUEL MCLEAN MD, Ot Z01.818 ENCOUNTER FOR OTHER PREPROCEDURAL EXAMIN 12/20/2017 SAMUEL MCLEAN MD, Ot Z12.11 ENCOUNTER FOR SCREENING FOR MALIGNANT NE Procedures Code Description Performed By Performed On 38.93 VENOUS CATHETERIZATION NEC 01/19/2012 43.0 GASTROTOMY 01/19/2012 Results Test Result Range PSA Yearly Screen - 09/26/16 10:16 PSA TOTAL 0.2 ng/mL 0.0-4.0 CBC With Differential/Platelet - 12/22/16 12:55 WBC 6.4 x10E3/uL 3.4-10.8 RBC 3.57 x10E6/uL 4.14-5.80 Hemoglobin 10.7 g/dL 12.6-17.7 Hematocrit 32.9 % 37.5-51.0 MCV 92 fL 79-97 MCH 30.0 pg 26.6-33.0 MCHC 32.5 g/dL 31.5-35.7 RDW 14.4 % 12.3-15.4 Platelets 287 x10E3/uL 150-379 Neutrophils 45 % Lymphs 40 % Monocytes 11 % Eos 4 % Basos 0 % Neutrophils (Absolute) 2.9 x10E3/uL 1.4-7.0 Lymphs (Absolute) 2.5 x10E3/uL 0.7-3.1 Monocytes(Absolute) 0.7 x10E3/uL 0.1-0.9 Eos (Absolute) 0.3 x10E3/uL 0.0-0.4 Baso (Absolute) 0.0 x10E3/uL 0.0-0.2 Immature Granulocytes 0 % Immature Grans (Abs) 0.0 x10E3/uL 0.0-0.1 Comp. Metabolic Panel (14) - 12/22/16 12:55 Glucose, Serum 122 mg/dL 65-99 BUN 17 mg/dL 6-24 Creatinine, Serum 0.95 mg/dL 0.76-1.27 eGFR If NonAfricn Am 94 mL/min/1.73 >59 eGFR If Africn Am 108 mL/min/1.73 >59 BUN/Creatinine Ratio 18 9-20 Sodium, Serum 141 mmol/L 134-144 Potassium, Serum 4.6 mmol/L 3.5-5.2 Chloride, Serum 101 mmol/L 96-106 Carbon Dioxide, Total 20 mmol/L 18-29 Calcium, Serum 8.9 mg/dL 8.7-10.2 Protein, Total, Serum 6.7 g/dL 6.0-8.5 Albumin, Serum 4.1 g/dL 3.5-5.5 Globulin, Total 2.6 g/dL 1.5-4.5 A/G Ratio 1.6 1.2-2.2 Bilirubin, Total <0.2 mg/dL 0.0-1.2 Alkaline Phosphatase, S 62 IU/L 39-117 AST (SGOT) 13 IU/L 0-40 ALT (SGPT) 10 IU/L 0-44 Lipid Panel - 12/22/16 12:55 Cholesterol, Total 216 mg/dL 100-199 Triglycerides 171 mg/dL 0-149 HDL Cholesterol 71 mg/dL >39 VLDL Cholesterol Joe 34 mg/dL 5-40 LDL Cholesterol Calc 111 mg/dL 0-99 Hemoglobin A1c - 12/22/16 12:55 Hemoglobin A1c 6.3 % 4.8-5.6 TSH - 12/22/16 12:55 TSH 1.660 uIU/mL 0.450-4.500 Lipid Panel - 02/12/17 11:03 C/HDL 4.2 3.7-6.7 Cholesterol 230 mg/dL 100-240 HDL 55 mg/dL 30-85 LDL-Calculated 134 mg/dL 0-100 Trig 203 mg/dL 35-160 VLDL 41 mg/dL 0-42 PSA Yearly Screen - 12/12/17 09:49 PSA TOTAL 0.4 ng/mL 0.0-4.0 Encounters ACCT No. Visit Date/Time Discharge Status Pt. Type Provider Facility Loc./Unit Complaint [id number] 05/21/2014 00:00:00 05/21/2014 23:59:59 CLS Outpatient WYATT SHAHID, TOBIAS Sorto [id number] 12/23/2016 14:07:00 Document Registration [id number] 12/26/2017 09:30:00 12/26/2017 23:59:59 CLS Preadmit SAMUEL MCLEAN MD [facility] ENDO SCREENING/REFLUX [id number] 12/19/2017 05:36:00 12/19/2017 13:03:00 DIS Outpatient SAMUEL MCLEAN MD [facility] PREOP COLONOSCOPY/EGD [id number] 11/28/2017 07:34:00 11/28/2017 23:59:59 CLS Outpatient BARBER-HOMA FERNANDES [facility] CARD R07.9 CHEST PAIN [id number] 11/26/2017 13:07:00 11/26/2017 23:59:59 CLS Outpatient BARBER-FATOUMATA HOMA BROWN K [facility] CARD R07.9 CHEST PAIN [id number] 11/15/2017 11:42:00 11/15/2017 23:59:59 CLS Outpatient BARBER-HOMA FERNANDES [facility] LAB R07.9 R06.09 I10 I26.99 [id number] 04/25/2017 08:30:00 04/25/2017 23:59:59 CLS Preadmit CAROLYN DOOLEY MD [facility] CARD R07.9 CHEST PAIN SYNDROME [id number] 04/05/2017 09:00:00 04/05/2017 23:59:59 CLS Preadmit CAROLYN DOOLEY MD [facility] CARD R07.9 CHEST PAIN SYNDROME [id number] 09/23/2012 19:33:00 Document Registration [id number] 09/07/2012 14:24:00 Document Registration [id number] 06/20/2012 12:25:00 Document Registration [id number] 06/12/2012 12:39:00 Document Registration [id number] 01/19/2012 04:35:00 Document Registration [id number] 12/12/2017 09:45:00 12/12/2017 23:59:00 DIS Outpatient Robinson Corral [id number] 04/25/2017 13:34:00 04/25/2017 23:59:00 DIS Outpatient Robinson Corral [id number] 02/12/2017 11:00:00 02/12/2017 23:59:00 DIS Outpatient Robinson Corral [id number] 09/26/2016 10:13:00 09/26/2016 23:59:00 DIS Outpatient Robinson Corral [id number] 10/05/2017 14:00:00 10/05/2017 23:59:59 [facility] Outpatient NADEEN MARIE [facility]
[2018-01-02] MEDS ORDERED: NS IV 500 ML 500 ML IV PRN (10:53)
[2018-01-02] MEDS ORDERED: NS IV 500 ML 500 ML ONE (11:07)
[2018-01-02 11:38] VITALS: BP 131/91
--- NOTE | 2018-01-02 11:42 | Conscious Sedation/ASA ---
Conscious Sedation Pre-Proced Time Reviewed: 11:00 ASA Class: 2 Airway Mallampati Classification: ([place] appropriate class) I. II. III, IV Lungs Heart ASA score ASA 1: a normal healthy patient ASA 2: a patient with a mild systemic disease (mid diabetes, controlled hypertension, obesity ASA 3: a patient with a severe systemic disease that limits activity (angina , COPD, prior Myocardial infarction) ASA 4: a patient with an incapacitating disease that is a constant threat to life (CHF, renal failure) ASA 5: a moribund patient not expected to survive 24 hrs. (ruptured aneurysm) ASA 6: a declared brain patient whose organs are being harvested. For emergent operations, add the letter E after the classification Grade 2 Sedation Plan: Analgesia, Amnesia, Plan communicated to team members, Discussed options with patient/fam, Discussed risks with patient/fam Note The patient is an appropriate candidate to undergo the planned procedure, sedation, and anesthesia. The patient immediately re-assessed prior to indication. SAMUEL MCLEAN MD January 02, 2018 11:42 am
--- NOTE | 2018-01-02 11:43 | Progress Note-Pre Operative ---
Pre-Operative Progress Note H&P Reviewed The H&P was reviewed, patient examined and no changes noted. Date Seen by Provider: January 02, 2018 Time Seen by Provider: 11:00 Date H&P Reviewed: January 02, 2018 Time H&P Reviewed: 11:00 Pre-Operative Diagnosis: PUD, screening colonoscopy SAMUEL MCLEAN MD January 02, 2018 11:43 am
[2018-01-02] MEDS ORDERED: morphine INJ 10 MG/ML 1ML (SYR OR VIAL) IV PRN (11:45)
[2018-01-02] MEDS ORDERED: ACETAMINOPHEN 325 MG TABLET/CAPLET (TYLENOL) PO PRN (11:45)
[2018-01-02] MEDS ORDERED: HYDROcodone/APAP 5 MG/325 MG (LORTAB) TAB PO PRN (11:45)
[2018-01-02] MEDS ORDERED: ONDANSETRON 4 MG/2 ML (SDV) Z0FRAN IV PRN (11:45)
[2018-01-02] MEDS ORDERED: HURRICAINE EXT TUBE (BENZOCAINE) XX ONE (12:45)
[2018-01-02] MEDS ORDERED: HURRICAINE EXT TUBE (BENZOCAINE) ONE (13:29)
[2018-01-02] MEDS ORDERED: fentaNYL INJECTION 100 MCG/2 ML AMP ONE ×2 (13:29)
[2018-01-02] MEDS ORDERED: LIDOCAINE JELLY 2% (XYLOCAINE) 5 ML TUBE ONE (13:29)
[2018-01-02] MEDS ORDERED: MIDAZOLAM 2 MG/2 ML (VERSED) VIAL ONE ×5 (13:29)
[2018-01-02] MEDS ORDERED: LIDOCAINE JELLY 2% (XYLOCAINE) 5 ML TUBE TOP ONE ×2 (13:45)
[2018-01-02] MEDS: MIDAZOLAM 2 MG/2 ML (VERSED) VIAL IVP PRN ×5 (14:00→14:16)
[2018-01-02] MEDS: fentaNYL INJECTION 100 MCG/2 ML AMP IVP PRN ×4 (14:01→14:15)
[2018-01-02 15:00] VITALS: BP 123/74
[2018-01-02 15:30] VITALS: BP 121/78
--- NOTE | 2018-01-02 15:53 | Progress Note-Post Operative ---
Post-Operative Progess Note Surgeon (s)/Keyliner (s) Surgeon SAMUEL MCLEAN MD Keyliner: none Pre-Operative Diagnosis PUD, screening colonoscopy Post-Operative Diagnosis reflux esophagitis(class B), recurrent HH(4-5cm), mild gastritis. chronic stage 2 ext and int hemorrhoids. Procedure & Operative Findings Date of Procedure 01/02/18 Procedure Performed/Findings EGD with bx. Colonoscopy. Anesthesia Type CS Estimated Blood Loss Estimated blood loss (mL): minimal Specimens/Packing Specimens Removed GE jxn, antrum SAMUEL MCLEAN MD January 02, 2018 3:53 pm
--- NOTE | 2018-01-03 01:47 | OPERATIVE REPORT ---
DATE OF SERVICE: 01/02/2018 ATTENDING PRIMARY CARE PHYSICIAN: Robinson Corral DO. PREOPERATIVE DIAGNOSES: Gastroesophageal reflux disease and history of peptic ulcer disease, screening colonoscopy. POSTOPERATIVE DIAGNOSES: 1. Reflux esophagitis class B, recurrent hiatal hernia 4 to 5 cm in size with several small Harman ulcerations, mild gastritis. 2. Colonoscopy: Mild chronic stage II external and internal hemorrhoids. Remainder of the rectum and colon were normal. PROCEDURES: EGD with biopsy and colonoscopy. SURGEON: Samuel Mclaughlin MD. ANESTHESIA: Conscious sedation. ESTIMATED BLOOD LOSS: Minimal. FINDINGS: 1. EGD: Reflux esophagitis class B, recurrent hiatal hernia approximately 4 to 5 cm in size with small Harman ulcerations within the hernia sac. No active bleeding. Mild gastritis. Pylorus and duodenum appeared normal with no distal obstructions. 2. Colonoscopy: Chronic stage II external and internal hemorrhoids. Prostate gland was palpable and appeared normal. The remainder of the rectum and colon were normal. There were no polyps identified. DISPOSITION: The patient tolerated the procedure well. INDICATIONS: The patient is a 52-year-old male who was referred over to us for an EGD as well as a screening colonoscopy. He did have an EGD done in 2005 for reflux esophagitis as well as gastritis. He had a significant history of reflux and a hiatal hernia and underwent a hiatal hernia repair and laparoscopic Hill gastropexy in 2003. In 2011, he did have abdominal pain and by laparoscopy was found to have contained perforated gastric ulcer into the lesser sac. He has not had a colonoscopy up to this point. He also does not report any family history of colon cancer. DESCRIPTION OF PROCEDURE: The patient was brought to the endoscopy suite, laid in the left lateral decubitus position. After adequate IV pain and sedating medications and conscious sedation anesthesia, the mouthpiece was applied. The endoscope was placed in the mouth, visualizing the pharynx and hypopharyngeal region. Vocal cords, epiglottis and vallecula identified and appeared to be normal. The endoscope was then gently intubated at the esophageal opening esophagus insufflated. The endoscope was then advanced to the first, second and third portions of the esophagus at the level of the GE junction, a reflux esophagitis class B identified. There were no ulcers or strictures identified in this region. A biopsy was taken with forceps with visualization of good hemostasis. The endoscope was then easily advanced in the stomach and the endoscope retroflexed, visualizing a recurrent hiatal hernia which was of good size and approximately 4 to 5 cm. There were also superficial Harman erosions within the portions of the stomach which were in the hernia sac. No active bleeding identified. There was mild severity gastritis. No formal ulcers, polyps or any neoplasms. A biopsy was taken of the antrum with forceps with visualization of good hemostasis. The endoscope was then advanced to the pylorus and the first and second portion of the duodenum, which appeared normal with no distal obstructions. The endoscope was then slowly withdrawn while taking a second look and suctioning of residual air with no additional findings. The patient tolerated this portion of the procedure well. For his recurrent hiatal hernia, reflux esophagitis as well as gastritis, we will recommend the necessary lifestyle and diet accommodation including small and more frequent meals, avoidance of eating at night as well as head elevation while lying supine. He also needs to avoid caffeinated beverages, spicy, greasy and acidic foods and continue his Protonix. If he does have recurrent episodes of reflux despite maximal medical therapy, we will refer him to a specialist that deals with revisional surgery in the foregut region. Under the same conscious sedation anesthesia, we then proceeded with colonoscopy portion of procedure. A digital rectal examination was performed which revealed mild chronic stage II external and internal hemorrhoids, not actively edematous nor inflamed and no bleeding. Normal sphincter tone was felt and there were no palpable masses. Prostate gland was palpable and appeared normal. The endoscope was then intubated to the anus and rectum and the rectum gently insufflated. The endoscope was then advanced to the valves of [place] in the rectum with no polyps or any neoplasms identified. We then proceeded through the sigmoid colon where no diverticulosis identified. The endoscope was then advanced to the remainder of the descending, transverse and ascending colon to the cecum. These segments are normal. There were no polyps or any neoplasms identified throughout the colon or rectum. The endoscope was then slowly withdrawn while taking a second look and suctioning of residual air with no additional findings. The patient tolerated the procedure well. We will recommend continued medical management with a high fiber diet with at least 30 grams of fiber per day as well as at least 64 fluid ounces of water daily to promote soft stools on a daily basis. He is not in need of colonoscopy for another 10 years. Job ID: [id number] DocumentID: [id number] Dictated Date: 01/02/2018 14:53:43 Molding And Trim Installer Date: 01/03/2018 01:47:13 Dictated By: SAMUEL MCLAUGHLIN MD
== END 2018-01-02 15:35 | disposition home or self-care (01) ==
LOC: ENDO 10:15
PROVIDERS: ATTEND Surgery
DX: K21.0 Gastro-esophageal reflux disease with esophagitis (principal); Z12.11 Encounter for screening for malignant neoplasm of colon; K44.9 Diaphragmatic hernia without obstruction or gangrene; K29.70 Gastritis, unspecified, without bleeding; K64.1 Second degree hemorrhoids; I10 Essential (primary) hypertension; E78.00 Pure hypercholesterolemia, unspecified; F41.9 Anxiety disorder, unspecified; F32.9 Major depressive disorder, single episode, unspecified; Z86.711 Personal history of pulmonary embolism
CPT/HCPCS: 43239; G0121; 88305

== ENCOUNTER → 2019-04-28 | Outpatient (CLI) | payer MEDICARE, MEDICAID ==
[~2019-04-28] MED LIST changes: -AMLO10TA2 PO; +AMLO10TA7 PO; +CLON0.5T13 PO; -CLON0.5T3 PO; -DULO60CA58 PO; +DULO60CA59 PO
== END | disposition home or self-care (01) ==
LOC: PREOP 05:55
PROVIDERS: ATTEND Surgery
DX: Z01.818 Encounter for other preprocedural examination (principal)

== ENCOUNTER 2019-05-05 10:34 | Day surgery (SDC) | payer MEDICAID, MEDICARE ==
[~2019-05-05] VITALS: Ht 177.8 cm; Wt 98.8 kg
[2019-05-05] MEDS ORDERED: LACTATED RINGERS 1,000 ML IV ONE (10:36)
[2019-05-05] MEDS ORDERED: LACTATED RINGERS 1,000 ML IV STA (10:41)
[2019-05-05] MEDS ORDERED: HURRICAINE EXT TUBE (BENZOCAINE) XX PRN (10:45)
[2019-05-05 11:10] VITALS: BP 151/90
--- NOTE | 2019-05-05 11:34 | Progress Note-Pre Operative ---
Pre-Operative Progress Note H&P Reviewed The H&P was reviewed, patient examined and no changes noted. Time Seen by Provider: 11:32 Date H&P Reviewed: May 05, 2019 Time H&P Reviewed: 11:30 Pre-Operative Diagnosis: Anemia, Epigastric pain, Gastritis VINAY MICHAUD DO May 05, 2019 11:34
[2019-05-05] MEDS ORDERED: PROPOFOL INJECTION 50 ML IV ONE (12:03)
[2019-05-05] MEDS ORDERED: MIDAZOLAM 2 MG/2 ML (VERSED) VIAL ONE (12:04)
[2019-05-05 12:40] VITALS: BP 158/10
[2019-05-05 12:45] VITALS: BP 147/97
[2019-05-05 12:50] VITALS: BP 147/97
[2019-05-05] MEDS ORDERED: BUSP10TA95 PO (12:51)
[2019-05-05 13:15] VITALS: BP 130/92
[2019-05-05 13:55] VITALS: BP 130/92
--- NOTE | 2019-05-05 14:02 | Progress Note-Post Operative ---
Post-Operative Progess Note Surgeon (s)/Language Tutor (s) Surgeon VINAY MICHAUD DO Language Tutor: none Pre-Operative Diagnosis Anemia, Epigastric pain, Gastritis Post-Operative Diagnosis Gastritis Poor Prep Internal hemorrhoids Procedure & Operative Findings Date of Procedure 05/05/19 Procedure Performed/Findings EGD with bx Anesthesia Type IV sedation by SAFETY EQUIPMENT TESTING SPECIALIST Estimated Blood Loss Estimated blood loss (mL): scant Specimens/Packing Specimens Removed antral bx GE jxn bx VINAY MICHAUD DO May 05, 2019 14:02
--- NOTE | 2019-05-05 14:03 | Endoscopy Discharge Instruct ---
Endo Procedure/Findings Findings 1.: Hiatal Hernia, Gastritis 2.: Other Findings (Esophagitis) 3.: Internal Hemorrhoids 4.: Other Findings (poor prep) Discharge Instructions - Activity: You might feel a little sleepy until tomorrow. This is due to the medicine you received to relax you. Until tomorrow, you should: NOT drive a car, operate machinery or power tools. NOT drink any alcoholic beverages. NOT make any important decisions or sign importortant papers. Do not return to work until tomorrow, unless otherwise instructed. Resume previous activities tomorrow. Diet: Start by taking liquids. If you tolerate liquids, advance to solid food. appointment in one week Notify Physician - If you experience excessive bleeding, unusual abdominal pain, fever, or chest pain, contact your doctor immediately. VINAY MICHAUD DO May 05, 2019 14:03
--- NOTE | 2019-05-05 15:31 | Anesthesia-General Post-Op ---
MAC Patient Condition Mental Status/LOC: Same as Preop Cardiovascular: Satisfactory Nausea/Vomiting: Absent Respiratory: Satisfactory Pain: Controlled Complications: Absent Post Op Complications Complications None Follow Up Care/Instructions Patient Instructions None needed. Anesthesiology Discharge Order Discharge Order Patient is doing well, no complaints, stable vital signs, no apparent adverse anesthesia problems. No complications reported per nursing. CHARMAINE ANGEL CRNA May 05, 2019 15:31
--- NOTE | 2019-05-05 21:37 | OPERATIVE REPORT ---
DATE OF SERVICE: 05/05/2019 PREOPERATIVE DIAGNOSES: 1. Anemia. 2. Hemoccult positive. POSTOPERATIVE DIAGNOSES: 1. Gastritis. 2. Hiatal hernia. 3. Esophagitis. 4. Internal hemorrhoids. 5. Poor prep. PROCEDURES: 1. EGD with biopsy. 2. Colonoscopy. SURGEON: Shlomo Dye DO VBA PROGRAMMER: Christy Mitchell, MS3. ANESTHESIA: IV sedation by the HAIRPIECE STYLIST. SPECIMEN: Biopsy from the antrum and two biopsies from the GE junction. BLOOD LOSS: Scant. FLUIDS: Per anesthesia. POSTOPERATIVE CONDITION: Stable. INDICATION FOR PROCEDURE: The patient is a 53-year-old male, who had some anemia and had a Hemoccult positive stool test and needed a workup. FINDINGS: The patient had some gastritis, hiatal hernia and esophagitis. Unfortunately, the colon was not completely prepped and had a very poor prep and a lot of retained fecal material, so could not see much in the colon. PROCEDURE NOTE: After informed consent was obtained, the patient was brought to the endoscopy suite and placed in the bed in left lateral decubitus position. He was administered IV sedation by the HAIRPIECE STYLIST, who monitored his vitals the entire time, heart rate, blood pressure and pulse ox and the scope was inserted down the mouth through the esophagus into the stomach. Upon entering the stomach, noted some gastritis, pushed into the antrum and then into the duodenum, took a picture of the duodenum, this looked good. I also noted some esophagitis on the way in and taken a picture. Retroflexed the scope, saw hiatal hernia, took a picture of this and then pulled the scope back up into the GE junction, did two biopsies here and then pulled the scope up the esophagus and out the mouth. Switched cameras, switched gloves and went down below, started the colonoscopy, pushed in, able to get to the ascending colon just past the hepatic flexure, but too much fecal material liquid and solid, could not see, did not want to cause any problems. So at this point, I slowly withdrew the scope insufflating the circumferential haq looking at the ascending colon to the hepatic flexure, down the transverse colon, the splenic flexure. I came throughout here, saw a formed fecal material with vegetable matter and liquid fecal material, could not clear all of it out. Continued down into the descending and sigmoid and finally into the rectum, retroflexed the rectal vault, saw some probably grade II internal hemorrhoids, did not see any other obvious pathology, but he will need this repeated in the next few months because of the poor prep. The patient was then recovered in endoscopy suite. Job ID: [id number] DocumentID: [id number] Dictated Date: 05/05/2019 17:29:28 Fitness And Wellness Director Date: 05/05/2019 21:35:26 Dictated By: SHLOMO DYE DO
== END 2019-05-05 13:55 | disposition home or self-care (01) ==
LOC: ENDO 10:34
PROVIDERS: ATTEND Surgery
DX: K21.0 Gastro-esophageal reflux disease with esophagitis (principal); K22.70 Barrett's esophagus without dysplasia; D64.9 Anemia, unspecified; K44.9 Diaphragmatic hernia without obstruction or gangrene; K64.8 Other hemorrhoids; K29.50 Unspecified chronic gastritis without bleeding; F41.9 Anxiety disorder, unspecified; F33.2 Major depressive disorder, recurrent severe without psychotic features; I10 Essential (primary) hypertension; I27.20 Pulmonary hypertension, unspecified; I08.1 Rheumatic disorders of both mitral and tricuspid valves; Z86.718 Personal history of other venous thrombosis and embolism; Z82.49 Family history of ischemic heart disease and other diseases of the circulatory system; Z82.3 Family history of stroke; Z88.0 Allergy status to penicillin; Z79.899 Other long term (current) drug therapy
CPT/HCPCS: 88305

== ENCOUNTER → 2019-07-09 | Outpatient (CLI) | payer MEDICARE ==
[~2019-07-09] VITALS: Ht 182 cm; Wt 104.0 kg
[~2019-07-09] MED LIST changes: +BUSP10TA95 PO; +CATHETER FLUSH 10 ML SYR IV PRN; +REGADENOSON 0.4 MG/5 ML SYR (LEXISCAN) IV ONE
[2019-07-09 09:05] VITALS: BP 157/109
[2019-07-09 09:13] VITALS: BP 161/107
--- NOTE | 2019-07-10 08:17 | STRESS TEST ---
DATE OF SERVICE: 07/09/2019 LEXISCAN MYOVIEW STRESS TEST REPORT REFERRING PHYSICIAN: Dr. Robinson Corral. Baseline heart rate is 61, baseline blood pressure 157/109. Baseline EKG is sinus rhythm with no ischemic changes. In summary, the patient was injected with 10.31 mCi of technetium-99 Myoview and the resting images were obtained. Then, the patient received 0.4 mg of Lexiscan followed by 28.9 mCi of technetium-99 Myoview. Throughout the test, there were no EKG changes. The resting and stress images were reviewed and compared in the short axis, horizontal long axis, and vertical long axis views. Review of the images showed diaphragmatic attenuation with typical male pattern with no significant ischemia or infarction. SSS is 2, SDS 2, TID value 1.02. On the gated images, the left ventricle appeared to be normal size with normal contractility. Calculated ejection fraction 67%. CONCLUSION: 1. The patient tolerated Lexiscan well. 2. Diaphragmatic attenuation with no significant ischemia or infarction on SPECT images. 3. Normal left ventricular size with normal contractility. Calculated ejection fraction 67%. Job ID: [id number] DocumentID: [id number] Dictated Date: 07/10/2019 06:45:51 Marine Firer Date: 07/10/2019 08:17:04 Dictated By: CAROLYN DOOLEY MD
== END ==
LOC: CARD 06:35
PROVIDERS: ATTEND Physician Assistant
DX: I11.9 Hypertensive heart disease without heart failure (principal); I26.99 Other pulmonary embolism without acute cor pulmonale; K29.50 Unspecified chronic gastritis without bleeding
CPT/HCPCS: 78452; 93017; 93306

== ENCOUNTER → 2021-06-08 | Outpatient (CLI) | payer MEDICARE ==
[~2021-06-08] VITALS: Ht 182 cm; Wt 113.0 kg
[~2021-06-08] MED LIST changes: +AMLO-251 PO; -AMLO10TA7 PO; -CLON0.5T13 PO; +CLON0.5T4 PO; +LISI40TA9 PO; -NABU500T PO; +NABU500T8 PO; -PANT40TA3 PO; +PANT40TA52 PO; -REGADENOSON 0.4 MG/5 ML SYR (LEXISCAN) IV ONE; +SIMV40TA25 PO; -SIMV40TA4 PO; -TRAM50TA2 PO
[2021-06-08 09:04] VITALS: BP 142/102
--- NOTE | 2021-06-08 11:19 | Cardiology Stress Test Report ---
Stress Test Report Date of Procedure/Referring: Date of Procedure: Jun 08, 2021 PCP Carolyn Logan MD Admitting Physician Robinson Corral DO Indications: HTN Baseline Heart Rate: 77 Baseline Blood Pressure: Blood Pressure Systolic: 142 Blood Pressure Diastolic: 102 Vital Signs Date Time Temp Pulse Resp B/P (MAP) Pulse Ox O2 Delivery O2 Flow Rate FiO2 06/08/21 09:04 78 16 142/102 (115) 97 Room Air Baseline Vital Signs Vital Signs Date Time Temp Pulse Resp B/P (MAP) Pulse Ox O2 Delivery O2 Flow Rate FiO2 06/08/21 09:04 78 16 142/102 (115) 97 Room Air Baseline EKG: Baseline EKG: NSR Summary: After explaining the procedure and details to the patient, he signed the consent and was brought to the stress nuclear laboratory. Patient exercised on standard David protocol, EKG, heart rate and blood pressure were monitored continuously, resting and stress doses of radio tracer were injected, imaging was acquired and reviewed in the short axis, horizontal long axis and vertical long axis views Patient was able to exercise for a total of 3 minutes on David protocol, METs 3 .9 Maximum heart rate 151 Maximum blood pressure 212/83 Stress EKG, Minimal nondiagnostic changes Recovery EKG, Return to baseline TID: 0.82 SSS: 3 SDS: 3 EF: 63 Conclusion: 1. Poor exercise tolerance for a total of 3 minutes on standard David protocol, 3.9 METS achieving 90% of maximal expected heart rate 2. Severe hypertensive response to exercise with peak blood pressure 212/83 return to baseline during recovery 3. Nondiagnostic EKG changes with exercise return to baseline during recovery 4. Diaphragmatic attenuation with mild decrease uptake at the inferoapical segment with subtle reversibility, there is no significant ischemia or infarc tion on SPECT images 5. Normal left ventricular size, EF 63% CAROLYN LOGAN MD Jun 08, 2021 11:19
== END ==
LOC: CARD 07:45
PROVIDERS: ATTEND Internal Medicine Cardiovascular Disease
DX: I10 Essential (primary) hypertension (principal)
CPT/HCPCS: 78452; 93017; A9502

== ENCOUNTER → 2021-06-10 | Outpatient (CLI) | payer MEDICARE ==
[~2021-06-10] MED LIST changes: -CATHETER FLUSH 10 ML SYR IV PRN
== END ==
LOC: CARD 13:00
PROVIDERS: ATTEND Internal Medicine Cardiovascular Disease
DX: I10 Essential (primary) hypertension (principal)
CPT/HCPCS: 93306

== ENCOUNTER 2021-10-27 05:31 | Outpatient (RCR) | payer MEDICARE ==
[~2021-10-27] VITALS: Ht 177.8 cm; Wt 116.8 kg
[~2021-10-27 05:31] MED LIST changes: +ARIP10TA10 PO; +FERR250T2 PO; +MULT-1136 PO; +POTA-51 PO
== END 2021-10-27 11:31 | disposition home or self-care (01) ==
LOC: PREOP 05:31
PROVIDERS: ATTEND Surgery
DX: Z01.812 Encounter for preprocedural laboratory examination (principal); Z20.822 Contact with and (suspected) exposure to COVID-19
CPT/HCPCS: 87635

== ENCOUNTER 2021-10-31 07:47 | Day surgery (SDC) | payer MEDICARE ==
[~2021-10-31] VITALS: Ht 178 cm; Wt 116.8 kg
[2021-10-31] MEDS ORDERED: LACTATED RINGERS 1,000 ML IV ONE (08:12)
[2021-10-31 08:15] VITALS: BP 139/100
[2021-10-31] MEDS ORDERED: LACTATED RINGERS 1,000 ML IV STA (08:15)
[2021-10-31] MEDS ORDERED: HURRICAINE EXT TUBE (BENZOCAINE) XX PRN (08:15)
--- NOTE | 2021-10-31 08:49 | Progress Note-Pre Operative ---
Pre-Operative Progress Note H&P Reviewed The H&P was reviewed, patient examined and no changes noted. Time Seen by Provider: 08:45 Date H&P Reviewed: Oct 31, 2021 Time H&P Reviewed: 08:45 Pre-Operative Diagnosis: Dysphagia, Anemia, Hemoccult + VINAY MICHAUD DO Oct 31, 2021 08:49
[2021-10-31] MEDS ORDERED: MIDAZOLAM 2 MG/2 ML (VERSED) VIAL ONE (09:34)
[2021-10-31] MEDS ORDERED: PROPOFOL INJECTION 50 ML IV ONE ×2 (09:35→09:56)
[2021-10-31 10:20] VITALS: BP 123/79
--- NOTE | 2021-10-31 10:23 | Progress Note-Post Operative ---
Post-Operative Progess Note Surgeon (s)/Newspaper Publisher (s) Surgeon VINAY MICHAUD DO Newspaper Publisher: Liz Bueno, MSIII Pre-Operative Diagnosis Dysphagia, Anemia, Hemoccult + Post-Operative Diagnosis Gastritis Hiatal Hernia polyp int hemorrhoids Procedure & Operative Findings Date of Procedure 10/31/21 Procedure Performed/Findings EGD with bx Colon with cold bx PROCEDURE NOTE: After informed consent was obtained, the patient was brought to the endoscopy suite, placed in bed in left lateral decubitus position. He was administered IV sedation by the NURSE TECH who then monitored vitals the entire time, heart rate, blood pressure and pulse ox and the scope was inserted down the mouth through the esophagus into the stomach. On the way down, noted possibly Ibarra's esophagitis, took a picture, pushed into the stomach, pushed past the antrum into the duodenum. Duodenum looked good. Pulled back and did a biopsy of antrum which looked like moderate Gastritis. Then retroflexed the scope and saw what looked like hiatal hernia with the cardia up next GE junction. Also noted severe gastritis in the cardia took a picture of this and then did two biopsies here. Next pulled the scope into the GE junction, took another picture of the esophagitis and then did a biopsy of the GE junction. Pushed the scope back into the stomach, suctioned all the air out of the stomach. At this point pulled the scope up the esophagus and out the mouth. Switched camera, switched gloves, went down below, started the colonoscopy. Pushed all the way into about 160 cm to get all the way to cecum, took a picture of the appendiceal orifice, noted the ileocecal valve and then slowly withdrew the scope, insufflating to look circumferentially at the haq starting in the cecum, up the ascending colon where I saw a small flat polyp. Elected to do a cold biopsy then continued up to the hepatic flexure, then down the transverse colon, splenic flexure, into the descending colon, down into the sigmoid and finally into the rectum, retroflexed in the rectal vault, saw some minimal internal hemorrhoids and took a picture of this. The patient tolerated the procedure and he recovered in the endoscopy suite. Anesthesia Type IV sedation by NURSE TECH Estimated Blood Loss Estimated blood loss (mL): scant Specimens/Packing Specimens Removed antral bx cardiac bx x 2 GE jxn bx x 2 Asc colon polyp VINAY MICHAUD DO Oct 31, 2021 10:23
[2021-10-31 10:25] VITALS: BP 120/73
--- NOTE | 2021-10-31 10:25 | Endoscopy Discharge Instruct ---
Endo Procedure/Findings Findings 1.: Hiatal Hernia, Gastritis 2.: Ibarra's Esophagus 3.: Polyp 4.: Internal Hemorrhoids Discharge Instructions - Activity: You might feel a little sleepy until tomorrow. This is due to the m edicine you received to relax you. Until tomorrow, you should: NOT drive a car, operate machinery or power tools. NOT drink any alcoholic beverages. NOT make any important decisions or sign importortant papers. Do not return to work until tomorrow, unless otherwise instructed. Resume previous activities tomorrow. Diet: Start by taking liquids. If you tolerate liquids, advance to solid food. 1.: EGD in 1 year 2.: Colonscopy in 5 years Notify Physician - If you experience excessive bleeding, unusual abdominal pain, fever, or chest pain, contact your doctor immediately. VINAY MICHAUD DO Oct 31, 2021 10:24
[2021-10-31 10:30] VITALS: BP 134/83
[2021-10-31] MEDS ORDERED: ANTACID SUSP 30 ML UDC (MYLANTA) PO ONE (11:00)
[2021-10-31] MEDS ORDERED: MILK OF MAGNESIA 400 MG/5 ML 30 ML UDC PO ONE (11:00)
[2021-10-31] MEDS ORDERED: LIDOCAINE 2% VISCOUS 15 ML UDC PO ONE (11:00)
[2021-10-31 11:15] VITALS: BP 146/98
--- NOTE | 2021-10-31 12:08 | Anesthesia-General Post-Op ---
MAC Patient Condition Mental Status/LOC: Same as Preop Cardiovascular: Satisfactory Nausea/Vomiting: Absent Respiratory: Satisfactory Pain: Controlled Complications: Absent Post Op Complications Complications None Follow Up Care/Instructions Patient Instructions None needed. Anesthesiology Discharge Order Discharge Order Patient is doing well, no complaints, stable vital signs, no apparent adverse anesthesia problems. No complications reported per nursing. SATNISLAV CALLEJAS CRNA Oct 31, 2021 12:08
== END 2021-10-31 11:24 | disposition home or self-care (01) ==
LOC: ENDO 07:47
PROVIDERS: ATTEND Surgery
DX: K29.70 Gastritis, unspecified, without bleeding (principal); D12.2 Benign neoplasm of ascending colon; K21.00 Gastro-esophageal reflux disease with esophagitis, without bleeding; K44.9 Diaphragmatic hernia without obstruction or gangrene; K64.8 Other hemorrhoids; D50.9 Iron deficiency anemia, unspecified; Z87.891 Personal history of nicotine dependence

== ENCOUNTER 2021-12-28 05:33 | Outpatient (CLI) | payer MEDICARE ==
[~2021-12-28] VITALS: Ht 182 cm; Wt 118.0 kg
== END 2021-12-30 12:42 | disposition home or self-care (01) ==
LOC: PREOP 05:33
PROVIDERS: ATTEND Surgery
DX: Z01.818 Encounter for other preprocedural examination (principal)

== ENCOUNTER 2022-01-04 10:20 | Day surgery (SDC) | payer MEDICARE, MEDICAID ==
[~2022-01-04] VITALS: Ht 182.9 cm; Wt 117.5 kg
[2022-01-04] VITALS (9 sets, daily range): BP systolic 131–154; BP diastolic 83–104
[2022-01-04] MEDS: LACTATED RINGERS 1,000 ML IV PRN ×3 (10:30→16:36)
[2022-01-04] MEDS ORDERED: CLINDAMYCIN 900 MG/50 ML IVPB 50 ML IV ONE (10:45)
[2022-01-04] MEDS ORDERED: SEVOFLURANE (ULTANE) 15 ML INHAL SOLN ONE ×2 (13:20→16:36)
[2022-01-04] MEDS ORDERED: ROCURONIUM 50 MG/5 ML (ZEMURON) VIAL IV ONE ×2 (13:20→14:57)
[2022-01-04] MEDS ORDERED: LIDOCAINE PF 2% 5 ML (XYLOCAINE) VIAL ONE (13:20)
[2022-01-04] MEDS ORDERED: ONDANSETRON 4 MG/2 ML (SDV) Z0FRAN ONE ×2 (13:20→17:07)
[2022-01-04] MEDS ORDERED: proPOfol 200 MG/20 ML (DIPRIVAN) VIAL IV ONE (13:20)
[2022-01-04] MEDS ORDERED: MIDAZOLAM 2 MG/2 ML (VERSED) VIAL ONE (13:21)
[2022-01-04] MEDS ORDERED: fentaNYL INJ 100 MCG/2 ML AMP ONE ×2 (13:21→17:08)
[2022-01-04] MEDS ORDERED: LIDOCAINE/EPI 1%-1:200,000 (XYLOCAINE) 30 ML VIAL ONE (13:28)
[2022-01-04] MEDS ORDERED: LABETALOL HCL 20 MG/4 ML VIAL ONE (14:32)
[2022-01-04] MEDS ORDERED: SUGAMMADEX 500 MG/5 ML VIAL (BRIDION) IV ONE ×2 (16:10→16:16)
[2022-01-04] MEDS ORDERED: DESFLURANE (SUPRANE) 15 ML INHAL SOLN ONE (16:36)
--- NOTE | 2022-01-04 16:45 | Progress Note-Pre Operative ---
Pre-Operative Progress Note H&P Reviewed The H&P was reviewed, patient examined and no changes noted. Time Seen by Provider: 13:50 Date H&P Reviewed: January 04, 2022 Time H&P Reviewed: 13:50 Pre-Operative Diagnosis: Hiatal hernia with severe reflux VINAY MICHAUD DO January 04, 2022 16:45
--- NOTE | 2022-01-04 16:48 | Progress Note-Post Operative ---
Post-Operative Progess Note Surgeon (s)/Director Of Architecture (s) Surgeon VINAY MICHAUD DO Director Of Architecture: Kizzy Pre-Operative Diagnosis Hiatal hernia with severe reflux Post-Operative Diagnosis Same with previous Hiatal repair Adhesions Gastrotomy Procedure & Operative Findings Date of Procedure 01/04/22 Procedure Performed/Findings Diagnostic Laparoscopy with MUSA Laparoscopic Gastrotomy repair Laparoscopic Fundoplication takedown EGD Anesthesia Type GET Estimated Blood Loss Estimated blood loss (mL): scant Specimens/Packing Specimens Removed none VINAY MICHAUD DO January 04, 2022 16:48
[2022-01-04] MEDS ORDERED: fentaNYL INJ 100 MCG/2 ML AMP IVP ONE (17:00)
[2022-01-04] MEDS ORDERED: LABETALOL HCL 20 MG/4 ML VIAL IV PRN (17:00)
[2022-01-04] MEDS ORDERED: ONDANSETRON 4 MG/2 ML (SDV) Z0FRAN IVP PRN ×2 (17:00)
--- NOTE | 2022-01-04 17:01 | Anesthesia-General Post-Op ---
General Patient Condition Mental Status/LOC: Same as Preop Cardiovascular: Satisfactory Nausea/Vomiting: Absent Respiratory: Satisfactory Pain: Controlled Complications: Absent Post Op Complications Complications None Follow Up Care/Instructions Patient Instructions None needed. Anesthesia/Patient Condition Patient Condition Patient is doing well, no complaints, stable vital signs, no apparent adverse anesthesia problems. No complications reported per nursing. AUREA BENITO CRNA January 04, 2022 17:01
[2022-01-04] MEDS: KETOROLAC 30 MG/ML VIAL IVP PRN (17:13)
[2022-01-04] MEDS ORDERED: KETOROLAC 30 MG/ML VIAL ONE (17:13)
[2022-01-04] MEDS: LACTATED RINGERS 1,000 ML IV SCH (20:13)
[2022-01-04] MEDS: CLINDAMYCIN 600 MG/50 ML IVPB 50 ML IV SCH (22:30)
[2022-01-05] MEDS: KETOROLAC 30 MG/ML VIAL IVP PRN ×2 (00:25→07:30)
[2022-01-05] MEDS: LACTATED RINGERS 1,000 ML IV SCH (00:28)
[2022-01-05] MEDS: CLINDAMYCIN 600 MG/50 ML IVPB 50 ML IV SCH (05:08)
[2022-01-05 05:09] VITALS: BP 126/80
[2022-01-05 07:27] VITALS: BP 154/94
[2022-01-05] MEDS ORDERED: PANTOPRAZOLE 40 MG (PROTONIX) VIAL IVP SCH (09:00)
[2022-01-05] MEDS ORDERED: ACHYD1T PO (10:29)
--- NOTE | 2022-01-05 10:30 | Discharge Inst-Surgical ---
Discharge Inst-Surgical Depart Medication/Instructions New, Converted or Re-Newed RX: Transmitted to Pharmacy Patient Instructions Follow up Appt: Make appointment for 1 week. [phone] Instructions: No lifting greater than 20 pounds. No strenuous activity. May shower in 24 hours, no tub bath or soaking. Use incentive spirometer at home as directed. No Smoking Skin/Wound Care: May remove bandages in am. You need to leave the Dermabond on incision it will fall off on it's own. Symptoms to Report: Appetite Changes, Extremity Discoloration, Numbness/Tingling, Swelling Increased, Bleeding Excessive, Eyesight Changes, Pain Increased, Urine Color Change, Constipation(Persistent), Fever over 101 degree F, Pain/Pressure in chest, Urinating Difficulty, Cough Up/Vomit Blood, Heart Beat Irreg/Pounding, Pain/Pressure in jaw, Cramps in feet or legs, Lightheadedness, Pain/Pressure in shoulder, Diarrhea(Persistent), Memory Changes Suddenly, Questions/Concerns, Weight gain consecutive days, Dizziness/Fainting, Nausea/Vomiting, Shortness of Breath, Weight gain over 2 pounds If questions or concerns contact your physician Or seek help at emergency department. Activity Activity as Tolerated: Yes Activity Instructions: Avoid Stress to Incision Driving Instructions: No Driving/Refer to Dr. Murphy Discharge Diet: No Restrictions If Any Problems/Questions/Issu: Contact Your Physician, Go to Emergency Room Skin/Wound Care Infection Signs and Symptoms: Increased Redness, Foul Odor of Wound, Increased Drainage, Skin Itchy or Has a Rash, Increased Swelling, Temperature Above 101 F Bathing Instructions: Shower Stitches/Ruel/Dermabond Dis: VINAY Billings DO January 05, 2022 10:30
[2022-01-05 10:50] VITALS: BP 154/94
--- NOTE | 2022-01-05 12:31 | Progress Note - Surgery ---
Subjective Time Seen by a Provider: 09:58 Subjective/Events-last exam Pt seen and examined, states minimal pain and tolerating diet. Review of Systems Pulmonary: No Dyspnea, No Cough Cardiovascular: No: Chest Pain, Palpitations Gastrointestinal: No: Nausea, Vomiting, Abdominal Pain Objective Exam Vital Signs Date Time Temp Pulse Resp B/P (MAP) Pulse Ox O2 Delivery O2 Flow Rate FiO2 01/05/22 10:50 37.5 92 19 154/94 94 Room Air 01/05/22 08:00 Room Air 01/05/22 07:27 37.5 92 19 154/94 (114) 94 Room Air 01/05/22 05:09 36.4 82 18 126/80 (95) 95 Room Air 01/04/22 23:19 36.7 90 18 131/83 (99) 92 Room Air 01/04/22 21:40 Room Air 01/04/22 20:00 36.6 85 18 141/90 (107) 94 Room Air 01/04/22 17:50 Room Air 01/04/22 17:40 36.5 18 151/99 (116) 94 Room Air 01/04/22 17:30 12 154/90 (111) 99 OxyMask 10 01/04/22 17:20 12 151/97 (115) 98 OxyMask 10 01/04/22 17:15 OxyMask 10 01/04/22 17:10 14 148/93 (111) 99 OxyMask 10 01/04/22 17:00 16 135/104 (114) 100 OxyMask 10 01/04/22 16:52 37.0 20 131/88 (102) 95 OxyMask 10 01/04/22 16:52 OxyMask 10 I & O 01/05/22 07:00 Intake Total 2940 ml Output Total 1325 ml Balance 1615 ml Capillary Refill : General Appearance: No Apparent Distress Respiratory: Lungs Clear, Normal Breath Sounds, No Accessory Muscle Use, No Respiratory Distress Cardiovascular: Regular Rate, Rhythm, No Murmur Gastrointestinal: soft, tenderness (minimally at incisions), other (incisions c/d/i) Results Lab Microbiology 01/04/22 MRSA Screen - Final, Complete MRSA not isolated Assessment/Plan Assessment/Plan Assessment/Plan S/P Diagnostic Lap with MUSA, Takedown of hiatal hernia, Gastrotomy repair dc iv and dc home VINAY MICHAUD DO January 05, 2022 12:31
--- NOTE | 2022-01-05 23:45 | OPERATIVE REPORT ---
DATE OF SERVICE: 01/04/2022 PREOPERATIVE DIAGNOSES: Hiatal hernia with severe reflux symptoms and chest pain. POSTOPERATIVE DIAGNOSES: 1. Recurrent hiatal hernia. 2. Gastrotomy. 3. Adhesions. PROCEDURES: 1. Diagnostic laparoscopy with extensive lysis of adhesions. 2. Laparoscopic gastrotomy repair. 3. Partial takedown of fundoplication. 4. EGD. SURGEON: Shlomo Dye DO DIE LAY OUT WORKER: Juan Luis Durand DO. ANESTHESIA: General endotracheal tube. SPECIMENS: None. BLOOD LOSS: Less than 20 mL. FLUIDS: Per anesthesia. POSTOPERATIVE CONDITION: Stable. INDICATION FOR PROCEDURE: The patient is a 56-year-old male, who had been having severe reflux symptoms with chest pain and he had had an EGD, which showed hiatal hernia as well as an esophagram that confirmed hiatal hernia and reflux. FINDINGS: The patient had adhesions in the abdomen. We then found a recurrent hiatal hernia. He had omentum and fat stuck up in the chest up through the diaphragm. There was a gastrotomy and then he had some mild gastritis seen on EGD. PROCEDURE NOTE: After informed consent was obtained, the patient was brought to the operating room, placed on the operating table in supine position. He was sterilely prepped and draped in normal fashion. He was then placed into a high Trendelenburg 25 degrees and he had a footboard on as well as a belt. We first actually before put him into that high reverse Trendelenburg, we placed ports, one in the left paramedian in a rectus muscle and then 2 more lateral to that as well as then one on the right side of the patient's body, all of them about 8 to 10 cm apart. He was placed in the high Trendelenburg and robot was docked. Upon entry, noted adhesions and it took well over 90 minutes to take these adhesions down. Once these adhesions down, we were able to see the stomach, it was up above the diaphragm, had a hard time to determine exactly what was going on with the stomach, started trying to identify the right and left cheo, went up to the angle of His, able to get into the diaphragmatic hernia and we pulled a lot of fat down. Once we pulled this down, we were trying to work on the right side of the stomach, incidentally created a gastrotomy. Elected to close this with a 3-0 silk running suture running from the superior portion to inferior portion and back tying and then running it back up and tying it again to double strength in this incision then while looking appeared that he had actually had a previous hiatal hernia repair. I was unaware of this because he did not tell me this in my meeting with him and in my H and P; however, nurse found looking through old notes previous operative report from 2012, mentioned hiatal hernia repair in 2006. 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 At this point, we talked to her that this was best because this was a redo and we were still really unsure of the anatomy even though we had taken down part of that fundoplication, we still really could not determine where the right cheo was, thought we found the left cheo, did not want to cause any more damages, need to go to someone who does a lot of robotic or laparoscopic hiatal hernia redos. As I was talking to her, we are bringing the EGD up to check the stomach, went into the stomach, there was some gastritis and some irritation from the probably the bougie placement. However, looking while I was doing the EGD, we were looking at this TV upon this robotic camera and there was no leak of air and the stomach completely insufflated. Took picture of the hiatal hernia and the wrap on the inside and then suctioned out all the air in the stomach and then allowed this to escape. After having a discussion with his and we elected to just stop this procedure, so as not to cause any problems. The patient was placed supine. Robot was undocked. All instruments were removed. Ports were removed. The left paramedian incision was closed with 0 Vicryl [id number] suture to close the fascia and then closed the skin with 3 interrupted 4-0 undyed Monocryl subcuticular stitches then closed the other 3 ports with 4-0 undyed Monocryl subcuticular stitch. There was also a 5 mm port to be placed at the beginning of the procedure and this was also closed with 4-0 undyed Monocryl subcuticular stitch. Area was cleaned and dried. Dermabond placed and the patient was then transferred to recovery room in stable condition. Sponge, instrument and needle count correct at the end of the case. Dr. Durand assisted in this case helping to make incisions, close incisions, identify anatomy, passed suture. Job ID: [id number] DocumentID: [id number] Dictated Date: 01/05/2022 14:45:57 Harp Regulator Date: 01/05/2022 23:45:16 Dictated By: DO MANDEEP SIMPSON
== END 2022-01-05 10:50 | disposition home or self-care (01) ==
LOC: SDC 10:20 → 4TH 17:50 → SDC 01-05 10:50
PROVIDERS: ATTEND Surgery
DX: K44.9 Diaphragmatic hernia without obstruction or gangrene (principal); K21.00 Gastro-esophageal reflux disease with esophagitis, without bleeding; K66.0 Peritoneal adhesions (postprocedural) (postinfection); K29.70 Gastritis, unspecified, without bleeding; Z93.1 Gastrostomy status; E66.9 Obesity, unspecified; Z68.35 Body mass index [BMI] 35.0-35.9, adult
CPT/HCPCS: 87081

== ENCOUNTER → 2022-01-17 | Outpatient (CLI) | payer MEDICARE, MEDICAID ==
[~2022-01-17] MED LIST changes: +ACHYD1T PO
--- NOTE | 2022-01-17 16:45 | Diagnostic Imaging Report ---
PROCEDURE: US left lower extremity venous. TECHNIQUE: Multiple Real-time grayscale images were obtained over the left lower extremity in various projections. Additional duplex Doppler and color Doppler images were also obtained. INDICATION: [id number]. FINDINGS: There is no evidence of left lower extremity DVT. The left lower extremity deep venous system shows normal compressibility with normal response to augmentation and Valsalva. No fluid collection or mass is detected. IMPRESSION: No evidence of left lower extremity DVT. Dictated by: Dictated on workstation # [id number]
== END ==
LOC: RAD 16:17
PROVIDERS: ATTEND Family Medicine
DX: Z86.718 Personal history of other venous thrombosis and embolism (principal)

== ENCOUNTER 2022-01-25 12:22 | Emergency (ER) | payer MEDICARE, MEDICAID ==
[~2022-01-25] VITALS: Ht 182.8 cm; Wt 117.5 kg
--- NOTE | 2022-01-25 12:58 | ED Lower Extremity ---
General Chief Complaint: Lower Extremity Stated Complaint: L KNEE PAIN Nursing Triage Note: injured about 3 weeks ago was worked up for possible blood clot with negitive resuts however pain and swelling continue. Source: patient Exam Limitations: no limitations History of Present Illness Date Seen by Provider: Jan 25, 2022 Time Seen by Provider: 12:40 Initial Comments Well-appearing 36-year-old male who presented to the ER for complaints of persistent left knee pain after he injured it about 3 weeks ago. States that he was moving a very heavy entertainment center and it slid and landed directly on his left knee. He was evaluated on January 17 for a possible blood clot, as he had a history of blood clot 15 years ago. His venous ultrasound was negative for any DVTs. States that occasionally he will have a sharp pain on the medial aspect of his knee that will radiate down to the foot. Will take Tylenol and Tramadol for pain which does help some. No fever, chills, cough, chest pain, redness to lower extremity, loss of sensation or numbness. Allergies and Home Medications Allergies Coded Allergies: nifedipine (Unverified Allergy, Intermediate, RASH, 12/19/17) Penicillins (Unverified Allergy, Mild, 12/19/17) Patient Home Medication List Home Medication List Reviewed: Yes Amlodipine Besylate (Amlodipine Besylate) 10 Mg Tablet, 10 MG PO DAILY, (Reported) Entered as Reported by: CARLIN REN on 12/19/17 1257 Aripiprazole (Abilify) 10 Mg Tablet, 10 MG PO DAILY, (Reported) Entered as Reported by: AMIRA BONNER on 10/25/21 1615 Carvedilol (Carvedilol) 25 Mg Tablet, 25 MG PO BID, (Reported) Entered as Reported by: CARLIN REN on 12/19/17 1257 Duloxetine HCl (Duloxetine HCl) 60 Mg Capsule.dr, 60 MG PO BID, (Reported) Entered as Reported by: CARLIN REN on 12/19/17 1257 Ferrous Sulfate (Slow Release Iron) 250 Mg Tablet.er, 250 MG PO DAILY, (Reported) Entered as Reported by: AMIRA BONNER on 10/25/21 1615 Hydrocodone Bit/Acetaminophen (HYDROcodone/APAP 10/325 TABLET) 1 Ea Tab, 1 EA PO Q6H PRN for PAIN-MODERATE (5-7) Prescribed by: VINAY MICHAUD on 01/05/22 1029 Lisinopril (Lisinopril) 40 Mg Tablet, 40 MG PO DAILY, (Reported) Entered as Reported by: CARLIN REN on 12/19/17 1257 Multivitamin (Multivitamin) 1 Each Tablet, 1 EACH PO DAILY, (Reported) Entered as Reported by: AMIRA BONNER on 10/25/21 1615 Nabumetone (Nabumetone) 500 Mg Tablet, 500 MG PO BID, (Reported) Entered as Reported by: CARLIN REN on 12/19/17 1257 Niacin (Niacin ER) 500 Mg Tab.er.24h, 500 MG PO HS, (Reported) Entered as Reported by: CARLIN REN on 12/19/17 1257 Pantoprazole Sodium (Pantoprazole Sodium) 40 Mg Tablet.dr, 40 MG PO DAILY, (Reported) Entered as Reported by: CARLIN REN on 12/19/17 1257 Potassium Chloride (Potassium Chloride) 20 Meq Tablet.er, 20 MEQ PO DAILY, (Reported) Entered as Reported by: AMIRA BONNER on 10/25/21 1615 Simvastatin (Simvastatin) 40 Mg Tablet, 80 MG PO HS, (Reported) Entered as Reported by: CARLIN REN on 12/19/17 1257 Tramadol HCl (Tramadol HCl) 50 Mg Tablet, 50 MG PO QID, (Reported) Entered as Reported by: CARLIN REN on 12/19/17 1257 Review of Systems Constitutional: no symptoms reported EENTM: no symptoms reported Respiratory: no symptoms reported Cardiovascular: no symptoms reported Musculoskeletal: see HPI Skin: no symptoms reported Past Lwrleuw-Ibaiif-Rufdcc Hx Immunizations Up To Date Tetanus Booster (TDap): More than 5yrs First/Initial COVID19 Vaccinat: NO Second COVID19 Vaccination Main: NO Third COVID19 Vaccination Date: NO Seasonal Allergies Seasonal Allergies: No Past Medical History Surgeries: Yes (HIATAL HERNIA, EMERGENCY SURGERY-"HOLE IN ABDOMEN FROM RUNNING INTO A POLE) Respiratory: Yes (HX OF PE) Pulmonary Embolism Currently Using CPAP: No Currently Using BIPAP: No Cardiac: Yes High Cholesterol, Hypertension Neurological: Yes Headaches /Migraines Reproductive Disorders: No Sexually Transmitted Disease: No HIV/AIDS: No Genitourinary: No Kidney Stones Gastrointestinal: Yes (DYSPHAGIA) Gastroesophageal Reflux, Hiatal Hernia Musculoskeletal: Yes (bulging discs ) Arthritis, Fibromyalgia, Chronic Back Pain Endocrine: No HEENT: No Loss of Vision: Denies Hearing Impairment: Denies Cancer: No Psychosocial: Yes Anxiety, Depression Integumentary: No Blood Disorders: Yes (ANEMIA) Adverse Reaction/Blood Tranf: No (N/A) Physical Exam Vital Signs Vital Signs - First Documented 01/25/22 12:34 Temp 36.7 Pulse 91 Resp 18 B/P (MAP) 125/100 (108) Pulse Ox 97 O2 Delivery Room Air Capillary Refill : Less Than 3 Seconds Height, Weight, BMI Height: 5'10.00" Weight: 217lbs. 14.0oz. [id number]; 35.00 BMI Method:Stated General Appearance: WD/WN, no apparent distress HEENT: PERRL/EOMI, normal ENT inspection Neck: full range of motion, normal inspection Cardiovascular: regular rate, rhythm, no murmur Respiratory: lungs clear, normal breath sounds, no respiratory distress, no accessory muscle use Gastrointestinal: soft Hips: bilateral hip non-tender, bilateral hip normal inspection, bilateral hip normal range of motion Knees: left knee pain, left knee swelling Ankles: bilateral ankle non-tender, bilateral ankle normal inspection, bilateral ankle normal range of motion Neurologic/Tendon: normal sensation, normal motor functions, normal tendon functions Neurologic/Psychiatric: no motor/sensory deficits, alert, normal mood/affect, oriented x 3 Skin: normal color, warm/dry Progress/Results/Core Measures Results/Orders My Orders Orders - GLENIS GIVENS [employer] Knee, Left, 3 Views (01/25/22 12:52) Vital Signs/I&O 01/25/22 12:34 Temp 36.7 Pulse 91 Resp 18 B/P (MAP) 125/100 (108) Pulse Ox 97 O2 Delivery Room Air Blood Pressure Mean: 108 Progress Progress Note : Progress Note Patient examined and in no acute distress. He does have swelling of his left lower extremity compared to the right. However his venous ultrasound was negative. He has no erythema to his left lower extremity. His pain is more anterior in nature. We will obtain x-rays of his left lower extremity. Images reviewed and are negative for acute fracture or joint effusion. Discharge POC reviewed and he is agreeable with plan. Diagnostic Imaging Diagonstic Imaging: Xray Comments [facility]. [place], [place] NAME: TOM TEE [facility] REC#: [id number] PT STATUS: REG ER : 1965 PHYSICIAN: GLENIS GIVENS [employer] ADMIT DATE: 01/25/22/ER Draft Date of Exam:01/25/22 KNEE, LEFT, 3 VIEWS INDICATION: Left knee injury with pain and swelling. TIME OF EXAM: 1:17 PM FINDINGS: 3 views of the left knee were obtained. Alignment is normal. Joint spaces are well maintained. Articular surfaces are smooth. No fracture, dislocation or effusion is seen. IMPRESSION: No acute abnormality is detected. Dictated on workstation # [id number] Dict: 01/25/22 1321 Trans: 01/25/22 1323 [id number] Interpreted by: TEJAS PETERSON MD Electronically signed by: Departure Impression Primary Impression: Knee pain Disposition: HOME, SELF-CARE Condition: Stable Departure-Patient Inst. Decision time for Depature: 13:31 Referrals: MARGARITA CORRAL DO (PCP/Family) Primary Care Physician Patient Instructions: Knee Pain ED Add. Discharge Instructions: Plan: 1. Follow up with Dr. Corral, it may be beneficial to obtain MRI if you are having persistent symptoms. 2. May use ice/heat 20 minutes at a time. 3. Continue your Tylenol and Tramadol as directed. 4. Return for any new, concerning, or worsening symptoms. All discharge instructions reviewed with patient and/or family. Voiced understanding. Scripts Hydrocodone/Acetaminophen (Hydrocodone-Acetamin 5-325 mg) 5 Mg-325 Mg Tablet 1 TAB PO Q6H PRN for PAIN-MODERATE (5-7), #15 TAB 0 Refills Prov: GLENIS GIVENS [employer] 01/25/22 GLENIS GIVENS [employer] Jan 25, 2022 12:58
--- NOTE | 2022-01-25 13:24 | Diagnostic Imaging Report ---
INDICATION: Left knee injury with pain and swelling. TIME OF EXAM: 1:17 PM FINDINGS: 3 views of the left knee were obtained. Alignment is normal. Joint spaces are well maintained. Articular surfaces are smooth. No fracture, dislocation or effusion is seen. IMPRESSION: No acute abnormality is detected. Dictated by: Dictated on workstation # [id number]
[2022-01-25] MEDS ORDERED: ACHD5005 PO (13:38)
[2022-01-25 13:48] VITALS: BP 138/87
== END 2022-01-25 14:03 | disposition home or self-care (01) ==
LOC: EDUNIT# 12:22 → ER 12:24
DX: M25.462 Effusion, left knee (principal); Z28.310 Unvaccinated for COVID-19; W20.8XXA Other cause of strike by thrown, projected or falling object, initial encounter
CPT/HCPCS: 73562

== ENCOUNTER 2022-11-01 09:32 | Emergency (ER) | payer MEDICARE, MEDICAID ==
[~2022-11-01] VITALS: Ht 182.8 cm; Wt 117.5 kg
[~2022-11-01 09:32] MED LIST changes: +ACHD5005 PO
[2022-11-01 09:40] VITALS: BP 129/85
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
[2022-11-01] MEDS ORDERED: IBUPROFEN 600 MG (MOTRIN) TAB PO ONE (10:45)
--- NOTE | 2022-11-01 11:42 | Diagnostic Imaging Report ---
INDICATION: Post left knee surgery, meniscus 6 months ago. Pain and swelling left lower extremity. TECHNIQUE: Multiple real-time grayscale images were obtained over the left lower extremity in various projections, bilaterally. Additional duplex Doppler and color Doppler images were also obtained. CORRELATION STUDY: None FINDINGS: Color and grayscale sonographic images demonstrate no intraluminal defect within the visualized portion of the common femoral, superficial femoral and/or popliteal veins to suggest thrombus formation. These vessels demonstrate normal response to compression and augmentation. No soft tissue fluid collection. IMPRESSION: 1. Negative for deep venous thrombosis of the left leg. Dictated by: Dictated on workstation # [id number]
[2022-11-01] MEDS ORDERED: MELO7.5T46 PO (11:48)
== END 2022-11-01 11:58 | disposition home or self-care (01) ==
LOC: EDUNIT# 09:32 → ER 09:34
DX: M23.92 Unspecified internal derangement of left knee (principal); I10 Essential (primary) hypertension; Z79.899 Other long term (current) drug therapy; Z28.310 Unvaccinated for COVID-19